=== PATIENT | female | born 1950 | race African-American/Black ===

== ENCOUNTER 2020-02-19 07:37 | Emergency (ER) | payer MEDICARE, MEDICAID, SELFPAY ==
[2020-02-19 07:49] VITALS: BP 151/84; PULSE 92; RESP 18; TEMP 36.6; O2SAT 100
--- NOTE | 2020-02-19 08:03 | ED.GENADULT ---
HPI - General Adult General Chief complaint: Unspecified Stated complaint: swelling arm/finger injury Time Seen by Provider: 02/19/20 07:39 History of Present Illness HPI narrative: She presented this morning with multiple complaints and questions. She says that she had swelling around the veins in her right forearm after striking it on something the other day. She says that this is improving. She denies pain. She also has a black dot on the tip of the right thumb that developed after pinching it with a can greige goods marker. She has no p[ain. Additionally she had several questions about what to expect with aging and how to stay healthy. Related Data Home Medications Medication Instructions Recorded Confirmed calcium carbonate-vitamin D3 600 cap PO 08/23/19 mg calcium-200 unit capsule indapamide 2.5 mg tablet 2.5 mg PO DAILY 08/23/19 xljpsmaufcyj-Ws-xpni-minerals tablet PO 08/23/19 Allergies Allergy/AdvReac Type Severity Reaction Status Date / Time No Known Allergies Allergy Unknown Verified 02/19/20 07:52 Review of Systems Review of Systems: All systems reviewed & are unremarkable except as noted in HPI and below Constitutional: Constitutional: Denies fever(s) and Denies weakness Eyes: Eyes: Denies change in vision Cardiovascular: Cardiovascular: Denies chest pain Respiratory: Respiratory: Denies dyspnea Gastrointestinal: Gastrointestinal: Denies abdominal pain Musculoskeletal: Musculoskeletal: Denies back pain Neurologic: Denies dizziness, Denies headache(s), Denies numbness and Denies weakness [facility] Past Medical History Medical History Hypertension Surgical History Surgical History History of tonsillectomy History of vaginal surgery Family History Family History Grandparent Hypertension Mother Hypertension Social History Social History Smoking status: Never smoker Second hand tobacco smoke exposure: No Alcohol intake: never Substance use: never Substance use type: does not use 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 Gender identity (if verbalized by the patient): Female Spiritual care concerns: Yes Agree to blood products: No Exam Const: General: healthy appearing, no acute distress and alert Orientation/consciousness: patient oriented x3 HENMT: Head: normal to inspection Resp: Effort & Inspection: normal respiratory effort Auscultation: clear to auscultation bilaterally Cardio: Rate: regular rate Rhythm: regular rhythm Skin: General skin exam: normal color Rashes: no rashes Other: resolving blood blister to right thumb Neuro: General: patient oriented x3, moves all extremities and no focal motor deficits Speech: normal speech Extrem: General: normal to inspection Psych: Appearance: grossly normal and well kempt Mental Status: mental status grossly normal Attitude: cooperative Course Vital Signs Vital signs: Vital Signs Temperature 36.6 C 02/19/20 07:49 Pulse Rate 92 02/19/20 07:49 Respiratory Rate 18 02/19/20 07:49 Blood Pressure 151/84 H 02/19/20 07:49 Pulse Oximetry 100 02/19/20 07:49 Temperature 36.6 C 02/19/20 07:49 Pulse Rate 92 02/19/20 07:49 Respiratory Rate 18 02/19/20 07:49 Blood Pressure 151/84 H 02/19/20 07:49 Pulse Oximetry 100 02/19/20 07:49 Medical Decision Making Vital Signs Vital Signs: Vital Signs Temperature 36.6 C 02/19/20 07:49 Pulse Rate 92 02/19/20 07:49 Respiratory Rate 18 02/19/20 07:49 Blood Pressure 151/84 H 02/19/20 07:49 Pulse Oximetry 100 02/19/20 07:49 Temperature 36.6 C 02/19/20 07:49 Pulse Rate 92 02/19/20 07:49 Respiratory Rate 18 02/19/20 07:49 Blood Pressure 151/84 H 02/19/20 07:49 P
--- NOTE | 2020-02-19 08:11 | PC.NURSE ---
Pt left department after being seen by ERP without discharge instructions.
== END 2020-02-19 08:13 | disposition left against medical advice (07) ==
LOC: ANHED 07:59
PROVIDERS: Emergency Provider Emergency Medicine; PCP Family Medicine
DX: S60.321A Blister (nonthermal) of right thumb, initial encounter (principal); I10 Essential (primary) hypertension; W27.4XXA Contact with kitchen utensil, initial encounter
CPT/HCPCS: 99281

== ENCOUNTER 2020-04-24 09:41 | Outpatient (CLI) | payer MEDICARE, MEDICAID, SELFPAY ==
--- NOTE | ~2020-04-24 | MM_ITS ---
EXAMINATION: MM screening sarabjit BI w tio HISTORY: Screening mammogram TECHNIQUE: Craniocaudal and mediolateral oblique 3-D tomosynthesis images were obtained and synthetic 2-D images were generated. CAD analysis was submitted and interpreted. COMPARISON: 04/22/2019, 04/06/2018, 12/13/2016 BREAST PARENCHYMAL COMPOSITION: The breasts are extremely dense, which lowers the sensitivity of mamm ography. FINDINGS: RIGHT BREAST: There is possible architectural distortion of the subareolar right breast best apprecia wali on the craniocaudal view. LEFT BREAST: There is no evidence of suspicious mass, calcification, or architectural distortion to s uggest malignancy. There has been no significant interval change. IMPRESSION: 1. Possible subareolar architectural distortion of the right breast. 2. Additional mammographic views and possible breast ultrasound are recommended. BI-RADS Category 0: Incomplete: Needs additional imaging evaluation. Reviewed, dictated and finalized at location A. IMPRESSION: 1. Possible subareolar architectural distortion of the right breast. 2. Additional mammographic views and possible breast ultrasound are recommended . BI-RADS Category 0: Incomplete: Needs additional imaging evaluation.
== END 2020-04-24 09:42 | disposition home or self-care (01) ==
LOC: ANHIMG 09:44
PROVIDERS: PCP Family Medicine; Visit Provider Family Medicine
DX: Z12.31 Encounter for screening mammogram for malignant neoplasm of breast (principal); R92.8 Other abnormal and inconclusive findings on diagnostic imaging of breast
CPT/HCPCS: 77063; 77067

== ENCOUNTER 2020-06-19 09:46 | Outpatient (CLI) | payer MEDICARE, MEDICAID, SELFPAY ==
--- NOTE | ~2020-06-19 | MMUS_ITS ---
EXAMINATION: MM diagnostic sarabjit RT w tio, US breast RT complete HISTORY: Possible subareolar architectural distortion of right breast reported on 04/24/2020 bilatera l digital screening mammogram TECHNIQUE: Additional 3-D tomosynthesis images of the right breast were performed and synthetic 2-D i mages were generated. CAD analysis was submitted and interpreted. High resolution complete right panch[address] st ultrasound was performed. COMPARISON: 04/24/2020 bilateral digital screening mammogram FINDINGS: MAMMOGRAPHIC FINDINGS: There are scattered benign microcalcifications. No suspicious mass or architectural distortion is det ected. No skin thickening or retraction. ULTRASOUND: There is dense echotexture but no suspicious mass, shadowing or cyst is identified. IMPRESSION: 1. No mammographic evidence of malignancy 2. Routine mammographic screening is recommended, with ultrasound as appropriate considering the dens e stroma the breasts BI-RADS Category 2: Benign finding(s). Reviewed, dictated and finalized at location A. NICIAN TERMINAL AND REPEATER IMPRESSION: 1. No mammographic evidence of malignancy 2. Routine mammographic screening is recommended, with ultrasound as appropriat e considering the dense stroma the breasts BI-RADS Category 2: Benign finding(s).
== END 2020-06-19 09:47 | disposition home or self-care (01) ==
LOC: ANHIMG 09:48
PROVIDERS: PCP Family Medicine; Visit Provider Physician Assistant
DX: R92.8 Other abnormal and inconclusive findings on diagnostic imaging of breast (principal)
CPT/HCPCS: 76641; 77061; 77065; G0279

== ENCOUNTER 2021-02-01 14:25 | Emergency (ER) | payer MEDICARE, MEDICAID, SELFPAY ==
--- NOTE | ~2021-02-01 | XR_ITS ---
EXAMINATION: XR chest 1V portable INDICATION: Cough and fever TECHNIQUE: Portable AP chest at 1500 hours COMPARISON: None available FINDINGS: The lungs are hyperinflated but free of acute opacities. There is no pleural effusion or pn eumothorax. The cardiomediastinal silhouette is normal. There is levocurvature of the partially image d lumbar spine. IMPRESSION: 1. Hyperinflation without acute cardiopulmonary abnormality. Reviewed, dictated and finalized at location A.
[2021-02-01 14:27] VITALS: BP 134/77; PULSE 121; RESP 22; TEMP 39.1; O2SAT 96
[2021-02-01 14:52] LABS: Basophils Percent Auto 0.4 % (0.2-1.2); Hematocrit 33.3 % (37.0-47.0); Hemoglobin 10.7 g/dL (12.0-15.0); Immature Granulocyte Absolute 0.01 K/mm3 (0.00-0.031); Immature Granulocyte Percent A 0.4 % (0-0.5); Lymphocytes Absolute Auto 0.78 K/mm3 (0.9-3.2); Lymphocytes Percent Auto 28.6 % (18.3-44.2); Mean Corpuscular HGB Conc 32.1 g/dl (32-36); Mean Corpuscular Hemoglobin 26.8 pg (26-34); Mean Corpuscular Volume 83.3 fl (80-100); Mean Platelet Volume 10.1 fl (7.4-10.4); Monocytes Absolute Auto 0.3 K/mm3 (0.1-0.6); Monocytes Percent Auto 9.9 % (2.6-8.5); Neutrophils Absolute Auto 1.7 K/mm3 (1.3-6.7); Neutrophils Percent Auto 60.7 % (45.5-73.1); Platelet Count Result 210 k/mm3 (150-375); Red Cell Distribution Width 13.1 % (11.5-14.5); White Blood Count 2.7 K/mm3 (4.5-10.0)
--- NOTE | 2021-02-01 15:06 | ED.FEVER ---
HPI - Fever General Chief Complaint: Fever Stated Complaint: FEVER/TIRED Time Seen by Provider: 02/01/21 14:42 Source: patient, RN notes reviewed and old records reviewed Mode of arrival: ambulatory Limitations: no limitations History of Present Illness HPI Narrative: This is a 70 year old female who presents for evaluation of cough and fever. She states she thinks she has COVID, and she is not vaccinated. She started having Fever on Friday, and she states her fevers are occurring daily. She also reports cough. She denies chest pain, shortness of breath, nausea, vomiting or diarrhea. She does not know of any known covid Exposures but she does go to [employer]. She denies dysuria , abdominal pain or hematuria. She has not taken any medication today but previously she has been taking over the counter medication. Related Data Home Medications Medication Instructions Recorded Confirmed calcium carbonate-vitamin D3 600 cap PO 08/23/19 03/20/20 mg calcium-200 unit capsule vpgzeurewrlv-Su-dscf-minerals tablet PO 08/23/19 03/20/20 ascorbic acid (vitamin C) 250 mg 250 mg PO DAILY 03/20/20 03/20/20 tablet Allergies Allergy/AdvReac Type Severity Reaction Status Date / Time No Known Allergies Allergy Unknown Verified 02/01/21 14:34 Review of Systems Review of Systems: All systems reviewed & are unremarkable except as noted in HPI and below Constitutional: Constitutional: Reports chills, Reports fatigue and Reports fever(s) ENT: Reports nasal congestion and Denies sore throat Cardiovascular: Cardiovascular: Denies chest pain Respiratory: Respiratory: Reports cough and Denies dyspnea Gastrointestinal: Gastrointestinal: Denies abdominal pain, Denies diarrhea, Denies nausea and Denies vomiting Neurologic: Denies headache(s) [facility] Past Medical History Medical History Abnormal mammogram of right breast Benign hypertension Dyslipidemia Hypercholesterolemia diet treated Hyperlipidemia Hypertension Post-menopausal Skin plaque Surgical History Surgical History History of tonsillectomy History of vaginal surgery Family History Family History Grandparent Hypertension Mother Hypertension Social History Social History Smoking status: Never smoker Second hand tobacco smoke exposure: No Alcohol intake: never Substance use: never Substance use type: does not use 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 Gender identity (if verbalized by the patient): Female Spiritual care concerns: Yes Agree to blood products: No Exam Const: General: no acute distress and alert Nutritional Appearance: thin Orientation/consciousness: patient oriented x3 Eyes: EOM: EOMs intact bilaterally Resp: Effort & Inspection: normal respiratory effort, not labored, no retractions and not tachypneic Auscultation: clear to auscultation bilaterally Cardio: Rate: tachycardic Rhythm: regular rhythm Heart sounds: no murmurs Peripheral pulses: Peripheral pulses 2+ throughout GI: GI Palp: Yes Soft to palpation, No Tenderness to palpation present (GI) and No Guarding due to palpation present (GI) Auscultation: normal bowel sounds Skin: General skin exam: normal color Rashes: no rashes Neuro: General: patient oriented x3, moves all extremities and CN's II-XI intact bilaterally Psych: Mental Status: mental status grossly normal Affect: normal affect Course Reevaluation(s) Reevaluation #1: I have discussed with patient chest xray does not show pneumonia at this time. She has no complaints and she feels better. Her labs shows decreased wbc but on review of records her wbc runs low. She was also found to have low sodium which may be due to i
[2021-02-01] MEDS: SODIUM CHLORIDE 0.9% IV 1,000 ML 999 ML IV CONT ×2 (15:10→15:53)
[2021-02-01 15:19] LABS: Lactic Acid Reflex 0.9 mmol/L (0.7-2.1)
[2021-02-01 15:21] LABS: Alanine Aminotransferase 11 U/L (4-35); Albumin Level 4.6 g/dL (3.5-5.1); Alkaline Phosphatase 64 U/L (38-126); Anion Gap 8 mmol/L (8-16); Aspartate Amino Transferase 27 U/L (14-36); Bilirubin,Total 0.3 mg/dL (0.2-1.3); Blood Urea Nitrogen 15 mg/dL (7-17); Calcium 9.1 mg/dL (8.4-10.2); Carbon Dioxide 27 mmol/L (22-30); Chloride 93 mmol/L (98-107); Estimated CRCL calculation 56 ml/min; Estimated Glomerular Filt Rate > 60; Glucose 100 mg/dL (65-110); Magnesium 1.6 mg/dL (1.6-2.3); Potassium 3.7 mmol/L (3.4-5.0); Sodium 128 mmol/L (137-145)
[2021-02-01 15:22] LABS: Atypical Lymphocytes Present; Ovalocytes 1+ (NORMAL); Platelet Estimate Adequate (Adequate)
[2021-02-01 15:29] VITALS: BP 125/68; PULSE 99; RESP 16; O2SAT 100
--- NOTE | 2021-02-01 16:09 | PC.NURSE ---
Pt up to bathroom and is unable to urinate. Nurse attempted straight cath with no urine output. Bladder scan reads from 40-80 ml in bladder. Continuing to hydrate pt with IVF.
[2021-02-01 17:18] LABS: Add Urine Microscopic? YES; Appearance Urine Clear (Clear); Bacteria Urine Trace /hpf; Bilirubin Urine Negative (Negative); Blood Urine Negative (Negative); Color Urine Yellow (Yellow); Glucose Urine UA Negative (Negative); Ketones Urine Trace mg/dL (Negative); Leukocyte Esterase Ur Negative LEU/UL (Negative); Mucus Urine Rare /lpf; Nitrate Urine Negative (Negative); Protein Urine 1+ mg/dL (Negative); RBC Urine 0-2 /hpf (0-2); Specific Grav Ur 1.015 (1.001-1.035); Squamous Epithelial Cell Urine Rare /hpf (Few); Urobilinogen Urine Negative mg/dL (<2.0); WBC Urine 0-3 /hpf
[2021-02-01 18:46] VITALS: BP 122/78; PULSE 92; RESP 16; TEMP 37.2; O2SAT 100
[2021-02-03 02:02] LABS: SARS-CoV-2 RNA PCR Positive
== END 2021-02-01 18:48 | disposition home or self-care (01) ==
PROVIDERS: Emergency Medicine; Emergency Provider General Practice
DX: U07.1 COVID-19 (principal); R50.9 Fever, unspecified; E87.1 Hypo-osmolality and hyponatremia; I10 Essential (primary) hypertension; E78.5 Hyperlipidemia, unspecified
CPT/HCPCS: 36415; 51701; 71045; 80048; 80076; 81001; 83605; 83735; 85025; 87804; 96361; 96374; 99284; C9803; J0131; J7030; U0003; U0005

== ENCOUNTER 2021-02-07 13:13 | Inpatient (IN) | payer MEDICARE, MEDICAID, SELFPAY ==
[2021-02-07] VITALS (11 sets, daily range): BP systolic 120–147; BP diastolic 74–94; PULSE 92–139; RESP 17–29; TEMP 36.7–37.3; O2SAT 93–100; BMI 16.0
--- NOTE | ~2021-02-07 | XR_ITS ---
EXAMINATION: XR chest 1V portable INDICATION: Cough, fever, shortness of breath TECHNIQUE: Portable AP chest at 1346 hours COMPARISON: 02/01/2021 FINDINGS: The lungs are hyperinflated. Airspace opacities have developed in the lung bases. There is no pleural effusion or pneumothorax. The cardiomediastinal silhouette is normal. IMPRESSION: 1. Bibasilar airspace opacities, consistent with atelectasis versus pneumonia. Reviewed, dictated and finalized at location B.
--- NOTE | ~2021-02-07 | CT_ITS ---
EXAMINATION: CTA chest PE protocol DATE: 02/07/2021 15:39 INDICATION: Shortness of breath, COVID 19 TECHNIQUE: Computed tomography angiography (CTA) of the chest was performed with 100 mL Omnipaque-350 intravenous contrast timed to evaluate the pulmonary arteries. Coronal maximum intensity projection 3D-reconstructions were created by the technologist. The dose-length product (DLP) was 180.89 mGy-cm. Automated exposure control and iterative reconstruction technique were employed. COMPARISON: None. FINDINGS: The pulmonary arteries are well-opacified. No pulmonary embolism is identified. There is mi ld emphysema. There are groundglass opacities throughout the lungs with a mid and lower lung zone pre dominance. There is no pleural effusion or pneumothorax. The heart size is normal. There is mild bila teral hilar and mediastinal lymphadenopathy, likely reactive. There is mild thoracic spondylosis. IMPRESSION: 1. Groundglass opacities in the mid and lower lung zone predominance, consistent with COVID 19 pneumo gavi given patient's clinical history. 2. Mild emphysema. 3. No pulmonary embolus. Reviewed, dictated and finalized at location B. IMPRESSION: 1. Groundglass opacities in the mid and lower lung zone predominance, consisten t with COVID 19 pneumonia given patient's clinical history. 2. Mild emphysema. 3. No pulmonary embolus.
--- NOTE | 2021-02-07 13:20 | ECG_ITS ---
Measurements Intervals [place] Rate: 132 P: 83 MO: 147 QRS: 44 QRSD: 72 T: 72 QT: 304 QTc: 451 Interpretive Statements SINUS TACHYCARDIA BASELINE ARTIFACT- I, II, III, AVR, AVL, AVF, V3 ABNORMAL ECG Electronically Signed On 02-07-2021 15:32:25 CDT by Tong Casillas D.O.
--- NOTE | 2021-02-07 13:42 | ED.SOB ---
HPI - SOB/Dyspnea General Chief Complaint: Shortness of Breath/Dyspnea Stated Complaint: DIFFICULTY BREATHING Source: RN notes reviewed History of Present Illness HPI Narrative: Patient presents to the emergency department from home via EMS for hypoxia. Per EMS when they arrived patient's oxygen saturation was approximately 85% on room air. Patient states she was diagnosed with COVID-19 on 02/01/2021 states she has been feeling weak as a kitten states that she has been feeling increasingly short of breath and her she gets up and ambulates or does any activities that does improve with rest she states that she has had no fever chills chest pain abdominal pain nausea vomiting or any other symptoms Related Data Home Medications Medication Instructions Recorded Confirmed calcium carbonate-vitamin D3 600 cap PO 08/23/19 03/20/20 mg calcium-200 unit capsule rqfonwyoqwmt-Zw-fheg-minerals tablet PO 08/23/19 03/20/20 ascorbic acid (vitamin C) 250 mg 250 mg PO DAILY 03/20/20 03/20/20 tablet Allergies Allergy/AdvReac Type Severity Reaction Status Date / Time No Known Allergies Allergy Unknown Verified 02/01/21 14:34 Review of Systems Review of Systems: Gen.: Denies fevers or chills Eyes: Denies eye pain or visual change ENT: Denies congestion Respiratory: See HPI CV: Denies chest pain or palpitations GI: Denies abdominal pain nausea, emesis or diarrhea Musculoskeletal: Denies back pain or muscle pain Neuro: Reports weakness Skin: Denies rash Except as documented, all other systems reviewed and negative [facility] Past Medical History Medical History Abnormal mammogram of right breast Benign hypertension Dyslipidemia Hypercholesterolemia diet treated Hyperlipidemia Hypertension Post-menopausal Skin plaque Surgical History Surgical History History of tonsillectomy History of vaginal surgery Family History Family History Grandparent Hypertension Mother Hypertension Social History Social History Smoking status: Never smoker Second hand tobacco smoke exposure: No Alcohol intake: never Substance use: never Substance use type: does not use 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 Gender identity (if verbalized by the patient): Female Spiritual care concerns: Yes Agree to blood products: No Exam Narrative: APPEARANCE: No acute distress, nontoxic, resting in bed EYES: EOMI HEENT: Normocephalic, atraumatic, oral mucosa dry RESPIRATORY: No respiratory distress Clear to auscultation bilaterally with no rhonchi wheezing or rales. CARDIOVASCULAR: Regular rate and rhythm without murmurs rubs or gallops. ABDOMINAL: Soft, nontender, nondistended, no rebound or guarding MUSCULOSKELETAl: Moves all extremities. No clubbing, cyanosis or edema. NEURO: Awake and alert. Following commands, speech normal, no focal deficits SKIN:: Warm, dry. No rashes lesions or abrasions PSYCHIATRIC: Normal affect/mood, Course Course Emergency Course: Reviewed old records Upon initial arrival by EMS patient was 85% on room air patient in ED is progressively had improvement of her breathing is now back down to room air head appears with the patient that activity worsens the patient oxygen demand Discussed with GIANLUCA Kraus for Dr. Sosa presentation work-up agrees with admission at this time request patient started on Decadron Discussed with patient and family results of workup and diagnosis. Discussed need for admission. Patient and family understand and agree to current treatment plan Vital Signs Vital signs: Vital Signs Temperature 99.1 F 02/07/21 13:18 Pulse Rate 137 H 02/07/21 13:18 Respiratory Rate 23 H 02/07/21 13:18 Blood Pressure 136/93 H 02/07/21 1
[2021-02-07 13:48] LABS: Basophils Percent Auto 0.3 % (0.2-1.2); Eosinophils Absolute Auto 0.1 K/mm3 (0-0.3); Eosinophils Percent Auto 0.7 % (0-4.4); Hematocrit 37.1 % (37.0-47.0); Hemoglobin 11.8 g/dL (12.0-15.0); Immature Granulocyte Absolute 0.03 K/mm3 (0.00-0.031); Immature Granulocyte Percent A 0.4 % (0-0.5); Lymphocytes Absolute Auto 1.19 K/mm3 (0.9-3.2); Lymphocytes Percent Auto 16.1 % (18.3-44.2); Mean Corpuscular HGB Conc 31.8 g/dl (32-36); Mean Corpuscular Hemoglobin 26.3 pg (26-34); Mean Corpuscular Volume 82.6 fl (80-100); Mean Platelet Volume 9.2 fl (7.4-10.4); Monocytes Absolute Auto 0.6 K/mm3 (0.1-0.6); Monocytes Percent Auto 7.9 % (2.6-8.5); Neutrophils Absolute Auto 5.5 K/mm3 (1.3-6.7); Neutrophils Percent Auto 74.6 % (45.5-73.1); Platelet Count Result 467 k/mm3 (150-375); Red Blood Count 4.49 M/mm3 (4.2-5.4); Red Cell Distribution Width 12.8 % (11.5-14.5); White Blood Count 7.4 K/mm3 (4.5-10.0)
[2021-02-07 13:57] LABS: Alanine Aminotransferase 12 U/L (4-35); Albumin Level 4.6 g/dL (3.5-5.1); Alkaline Phosphatase 94 U/L (38-126); Anion Gap 12 mmol/L (8-16); Aspartate Amino Transferase 35 U/L (14-36); Bilirubin,Total 0.7 mg/dL (0.2-1.3); Blood Urea Nitrogen 21 mg/dL (7-17); Calcium 10.2 mg/dL (8.4-10.2); Carbon Dioxide 26 mmol/L (22-30); Chloride 100 mmol/L (98-107); Estimated CRCL calculation 85 ml/min; Estimated Glomerular Filt Rate > 60; Glucose 132 mg/dL (65-110); Potassium 3.6 mmol/L (3.4-5.0); Sodium 138 mmol/L (137-145)
[2021-02-07 14:01] LABS: CRP 2.3 mg/dL (<1.0); Lactate Dehydrogenase 820 U/L (313-618)
[2021-02-07] MEDS: SODIUM CHLORIDE 0.9% IV 1,000 ML 999 ML IV CONT (14:07)
--- NOTE | 2021-02-07 14:08 | PC.NURSE ---
On arrival to ED pt states she has no or children to take care of her and feels she cannot take care of herself any more. Expresses desire to be admitted or places in [place].
[2021-02-07 14:16] LABS: Partial Thromboplastin Time 26.9 SECONDS (22.3-36.8); Prothrombin Time 12.8 Seconds (11.1-14.7)
--- NOTE | 2021-02-07 15:36 | PC.NURSE ---
Pt to CT on stretcher.
[2021-02-07] MEDS: DEXAMETHASONE SOD PHOS INJ 4 MG/ML VIAL 6 MG IV PUSH (16:19)
--- NOTE | 2021-02-07 18:01 | PC.NURSE ---
Attempted to call report. Floor states fax machine was broken and didn't receive SBAR. Will call back
--- NOTE | 2021-02-07 18:19 | PC.NURSE ---
Attempted to call report. Floor RN will call back
--- NOTE | 2021-02-07 19:05 | PC.NURSE ---
This patient, Arlyn Felix, was admitted to 3 Med Surg Room 320-01. Patient/family oriented to hospital policies and general routines including ID bracelet, bed and alarms, visiting hours, pain management, procedures, bathroom and other care routines, personal items, smoking policy, room service/diet, and visiting hours. Report received from Nima BRINK Information on how to activate the Rapid Response Team has been discussed. Patient/Family are encouraged to report perceived risks to care and to ask questions if they do not understand what they are told or what they should do.
--- NOTE | 2021-02-07 21:03 | ADMGEN ---
This patient, Arlyn Felix, was admitted to 3 Med Surg Room 320-01. Patient/family oriented to hospital policies and general routines including ID bracelet, bed and alarms, visiting hours, pain management, procedures, bathroom and other care routines, personal items, smoking policy, room service/diet, and visiting hours. Information on how to activate the Rapid Response Team has been discussed. Patient/Family are encouraged to report perceived risks to care and to ask questions if they do not understand what they are told or what they should do.
--- NOTE | 2021-02-07 21:18 | PM.IMHP ---
H&P: HPI History of Present Illness Date/Time: 02/07/21 21:18 Chief Complaint: shortness of breath Narrative: Patient presents to the emergency department from home via EMS for hypoxia and shortness of breath. Per EMS when they arrived patient's oxygen saturation was approximately 85% on room air. Patient states she was diagnosed with COVID-19 on 02/01/2021 states she has been feeling Week with cough and fever since past Friday. She was here in the ER on 02/01/2021 when he was tested was positive for COVID. She has been increasingly getting short of breath particularly when she ambulates. No chest pain abdominal pain nausea vomiting. She has not been COVID vaccinated Review of Systems Review of Systems: - CONSTITUTIONAL: Denies weight loss, report fever and chills. - HEENT: Denies changes in vision and hearing - RESPIRATORY: reports SOB and cough. - CV: Denies palpitations and CP. - GI: Denies abdominal pain, nausea, vomiting and diarrhea. - : Denies dysuria and urinary frequency. - MSK: Denies myalgia and joint pain. - SKIN: Denies rash and pruritus. - NEUROLOGICAL: Denies headache and syncope. - PSYCHIATRIC: Denies recent changes in mood. Denies anxiety and depression. All systems reviewed & are unremarkable except as noted in HPI and below Constitutional: Constitutional: Reports fatigue and Reports weakness Neurologic: Reports weakness Endocrine: Endocrine: Reports fatigue PMFSH Past Medical History Medical History Abnormal mammogram of right breast Benign hypertension Dyslipidemia Hypercholesterolemia diet treated Hyperlipidemia Hypertension Post-menopausal Skin plaque Surgical History Surgical History History of tonsillectomy History of vaginal surgery Family History Family History Grandparent Hypertension Mother Hypertension Social History Social History Smoking status: Never smoker Second hand tobacco smoke exposure: No Alcohol intake: never Substance use: never Substance use type: does not use 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 Gender identity (if verbalized by the patient): Female Spiritual care concerns: No Agree to blood products: No Meds Home Medications and Allergies Home Medications Medication Instructions Recorded Confirmed Type lisinopril 10 mg tablet 10 mg PO DAILY #90 tablet 10/30/20 02/07/21 Rx Allergies Allergy/AdvReac Type Severity Reaction Status Date / Time No Known Allergies Allergy Unknown Verified 02/01/21 14:34 Vital Signs Vital Signs - 24 hr 02/07/21 13:18 02/07/21 13:46 02/07/21 14:01 Temperature 99.1 F Pulse Rate 137 H 139 H 122 H Respiratory Rate 23 H 23 H 29 H Blood Pressure 136/93 H 124/89 122/85 Pulse Oximetry 93 97 02/07/21 14:06 02/07/21 14:14 02/07/21 15:01 Temperature Pulse Rate 115 H 116 H Respiratory Rate 25 H Blood Pressure 142/92 H Pulse Oximetry 97 100 02/07/21 16:01 02/07/21 18:01 02/07/21 18:46 Temperature Pulse Rate 108 H 96 102 H Respiratory Rate 17 22 H 23 H Blood Pressure 140/82 147/94 H 137/85 Pulse Oximetry 95 95 97 Exam Narrative: GENERAL: The patient is well developed, not in acute distress HEENT: Nonicteric sclerae, PERRLA, EOMI. Oropharynx clear. Moist mucous membranes. Conjunctivae appear well perfused. CHEST: Chest wall is nontender. HEART: Regular rate and rhythm without murmur, rubs, or gallops LUNGS: Clear to auscultation bilaterally. no respiratory distress ABDOMEN: Soft, positive bowel sounds, non-tender, no organomegaly. SKIN: No rash, no excessive bruising, petechiae, or purpura. NEUROLOGIC: Cranial nerves II-XII intact, alert and oriented x 3, no gross motor deficits EXTREMITIES
[2021-02-07 22:18] LABS: Alanine Aminotransferase 9 U/L (4-35); Estimated CRCL calculation 53 ml/min; Estimated Glomerular Filt Rate > 60
[2021-02-07] MEDS: ENOXAPARIN 40 MG/0.4 ML SYRINGE SUB-Q (22:53)
[2021-02-07] MEDS: REMDESIVIR 200 MG/NS 250 ML 200 MG/250 ML BAG 250 MG IVPB (22:53)
[2021-02-07 23:55] LABS: Prothrombin Time 13.4 Seconds (11.1-14.7)
[2021-02-08 04:00] VITALS: BP 156/94; PULSE 97; RESP 18; TEMP 36.9; O2SAT 90
[2021-02-08 05:22] LABS: Glucose Point of Care 118 mg/dl (65-105)
[2021-02-08 07:41] LABS: Basophils Percent Auto 0.2 % (0.2-1.2); Hematocrit 32.8 % (37.0-47.0); Hemoglobin 10.6 g/dL (12.0-15.0); Immature Granulocyte Absolute 0.02 K/mm3 (0.00-0.031); Immature Granulocyte Percent A 0.5 % (0-0.5); Lymphocytes Absolute Auto 0.91 K/mm3 (0.9-3.2); Lymphocytes Percent Auto 22.5 % (18.3-44.2); Mean Corpuscular HGB Conc 32.3 g/dl (32-36); Mean Corpuscular Hemoglobin 26.5 pg (26-34); Mean Platelet Volume 9.4 fl (7.4-10.4); Monocytes Absolute Auto 0.3 K/mm3 (0.1-0.6); Monocytes Percent Auto 8.2 % (2.6-8.5); Neutrophils Absolute Auto 2.8 K/mm3 (1.3-6.7); Neutrophils Percent Auto 68.6 % (45.5-73.1); Platelet Count Result 403 k/mm3 (150-375); Red Cell Distribution Width 12.8 % (11.5-14.5)
[2021-02-08 07:58] LABS: Alanine Aminotransferase 9 U/L (4-35); Albumin Level 3.9 g/dL (3.5-5.1); Alkaline Phosphatase 74 U/L (38-126); Anion Gap 10 mmol/L (8-16); Aspartate Amino Transferase 21 U/L (14-36); Bilirubin,Total 0.4 mg/dL (0.2-1.3); Blood Urea Nitrogen 19 mg/dL (7-17); CRP 3.4 mg/dL (<1.0); Calcium 9.6 mg/dL (8.4-10.2); Carbon Dioxide 24 mmol/L (22-30); Chloride 103 mmol/L (98-107); Estimated CRCL calculation 53 ml/min; Estimated Glomerular Filt Rate > 60; Glucose 98 mg/dL (65-110); Potassium 4.2 mmol/L (3.4-5.0); Sodium 137 mmol/L (137-145)
[2021-02-08 08:00] VITALS: BP 142/87; PULSE 85; RESP 16; TEMP 36.9; O2SAT 94
[2021-02-08 08:10] LABS: Prothrombin Time 12.8 Seconds (11.1-14.7)
[2021-02-08 09:34] LABS: Platelet Estimate Increased (Adequate)
[2021-02-08 09:35] LABS: Microcytosis 2+ (NORMAL); Poikilocytosis 1+ (NORMAL)
[2021-02-08 10:18] LABS: Troponin I < 0.012 ng/mL (0.000-0.034)
[2021-02-08 10:24] LABS: D Dimer 0.66 ug/mL (<0.48)
[2021-02-08 10:25] LABS: NT Pro B Type Natriuretic Pept 184 pg/mL (5-100)
[2021-02-08 10:32] LABS: Erythrocyte Sedimentation Rate 83 mm/hr (0-20)
[2021-02-08 10:58] LABS: Lactate Dehydrogenase 712 U/L (313-618)
[2021-02-08 11:10] VITALS: BMI 16.0
[2021-02-08 12:00] VITALS: BP 114/66; PULSE 99; RESP 16; TEMP 36.7; O2SAT 93
[2021-02-08 13:21] LABS: Troponin I < 0.012 ng/mL (0.000-0.034)
[2021-02-08 16:00] VITALS: BP 120/66; PULSE 88; RESP 16; TEMP 37.1; O2SAT 95
[2021-02-08] MEDS: lisinopriL 10 MG TABLET PO (16:47)
--- NOTE | 2021-02-08 19:23 | PM.IMPN ---
Progress Note: A&P Assessment and Plan (1) COVID-19: Code(s): U07.1 - COVID-19 Status: Acute (2) Acute respiratory failure with hypoxia: Code(s): J96.01 - Acute respiratory failure with hypoxia Status: Acute (3) Skin plaque: Code(s): L98.8 - Other specified disorders of the skin and subcutaneous tissue Status: Acute (4) Benign hypertension: Code(s): I10 - Essential (primary) hypertension Status: Acute Additional Plan COVID-19 pneumonia and acute hypoxic respiratory failure Continue Decadron 6 mg IV daily Continue remdesivir Continue anticoagulation Subjective Date/time seen: 02/08/21 19:23 70-year-old female with past medical history significant for hypertension and hyperlipidemia, who confirmed being unvaccinated for COVID-19, presented but shortness of breath. She was test is positive on 02/01. Chest x-ray done today revealed concerns for bilateral patchy opacities. She has been started on remdesivir and Decadron and is also being managed for acute hypoxic respiratory failure Review of Systems Review of Systems: A 10 point review of system was conducted which was otherwise negative Exam Narrative: GENERAL: The patient is well developed, not in acute distress HEENT: Nonicteric sclerae, PERRLA, EOMI. Oropharynx clear. Moist mucous membranes. Conjunctivae appear well perfused. CHEST: Chest wall is nontender. HEART: Regular rate and rhythm without murmur, rubs, or gallops LUNGS: Clear to auscultation bilaterally. no respiratory distress ABDOMEN: Soft, positive bowel sounds, non-tender, no organomegaly. SKIN: No rash, no excessive bruising, petechiae, or purpura. NEUROLOGIC: Cranial nerves II-XII intact, alert and oriented x 3, no gross motor deficits EXTREMITIES: no edema, cyanosis or clubbing Objective Data Vital Signs Vital Signs: Vital Signs - 24 hr 02/07/21 23:59 02/08/21 04:00 02/08/21 08:00 Temperature 98.8 F 98.4 F 98.5 F Pulse Rate 93 97 85 Respiratory Rate 18 18 16 Blood Pressure 120/74 156/94 H 142/87 H Pulse Oximetry 93 90 94 02/08/21 12:00 02/08/21 16:00 Temperature 98.0 F 98.7 F Pulse Rate 99 88 Respiratory Rate 16 16 Blood Pressure 114/66 120/66 Pulse Oximetry 93 95 Intake/Output Intake/Output: Intake & Output 02/05/21 02/06/21 02/07/21 02/08/21 23:59 23:59 23:59 23:59 Intake Total 1250 1960 Output Total 600 Balance 1250 1360 Meds/Results Medications: Active Medications Generic Name Dose Route Start Last Admin Trade Name Freq PRN Reason Stop Dose Admin Ascorbic Acid 250 mg 02/09/21 09:00 Ascorbic Acid 250 Mg Tablet PO DAILY [facility] Benzocaine 1 lozenge 02/08/21 09:15 Benzocaine/Menthol (*Bkc) 18 Ea Lozenge PO PRN PRN Sore Throat Benzonatate 100 mg 02/08/21 09:15 Benzonatate 100 Mg Capsule PO TID PRN cough Dexamethasone Sodium Phosphate 6 mg 02/08/21 09:00 02/08/21 08:14 Dexamethasone Sod Phos Inj 10 Mg/Ml 1 Ml Vial IV PUSH 02/16/21 09:01 6 mg DAILY [facility] Administration Enoxaparin Sodium 40 mg 02/07/21 21:00 02/08/21 08:15 Enoxaparin 40 Mg/0.4 Ml Syringe SUB-Q Not Given Q12HR [facility] Famotidine 10 mg 02/08/21 21:00 Famotidine 10 Mg Tablet PO Q12HR [facility] Guaifenesin 200 mg 02/08/21 09:15 Guaifenesin 200 Mg/10 Ml Udc PO Q4H PRN Cough Remdesivir 100 mg in 250 mls @ 250 mls/hr 02/08/21 22:00 IVPB 02/11/21 22:01 Q24H [facility] Lisinopril 10 mg 02/08/21 09:00 02/08/21 16:47 Lisinopril 10 Mg Tablet PO 10 mg DAILY [facility] Administration Zinc Sulfate 220 mg 02/09/21 09:00 Zinc Sulfate 220 Mg Capsule PO QAM [facility] Radiology Results: ITS Impressions Chest X-Ray 02/07/21 13:53 IMPRESSION: 1. Bibasilar airspace opacities, consistent with atelectasis versus pneumonia. Chest CTA 02/07/21 15:41 IMPRESSION: 1. Groundglass opacities in the mid and lower lung zone predominance, consistent with COVID
[2021-02-08 20:00] VITALS: BP 120/66; PULSE 89; RESP 18; TEMP 36.3; O2SAT 96
[2021-02-08] MEDS: FAMOTIDINE 10 MG TABLET PO (21:56)
[2021-02-08] MEDS: REMDESIVIR 100 MG/NS 250 ML 100 MG/250 ML BAG 250 MG IVPB (21:56)
[2021-02-08] MEDS: ENOXAPARIN 40 MG/0.4 ML SYRINGE SUB-Q (21:56)
[2021-02-09] VITALS: BP 118/71; PULSE 80; RESP 18; TEMP 36.2; O2SAT 98
[2021-02-09 04:00] VITALS: BP 131/82; PULSE 85; RESP 18; TEMP 35.9; O2SAT 93
[2021-02-09 06:30] LABS: Basophils Percent Auto 0.3 % (0.2-1.2); Eosinophils Absolute Auto 0.1 K/mm3 (0-0.3); Eosinophils Percent Auto 0.7 % (0-4.4); Hematocrit 31.6 % (37.0-47.0); Hemoglobin 9.8 g/dL (12.0-15.0); Immature Granulocyte Absolute 0.06 K/mm3 (0.00-0.031); Immature Granulocyte Percent A 0.9 % (0-0.5); Lymphocytes Absolute Auto 1.29 K/mm3 (0.9-3.2); Lymphocytes Percent Auto 18.8 % (18.3-44.2); Mean Corpuscular Hemoglobin 26.5 pg (26-34); Mean Corpuscular Volume 85.4 fl (80-100); Mean Platelet Volume 9.5 fl (7.4-10.4); Monocytes Absolute Auto 0.6 K/mm3 (0.1-0.6); Neutrophils Absolute Auto 4.9 K/mm3 (1.3-6.7); Neutrophils Percent Auto 71.3 % (45.5-73.1); Nucleated Red Blood Cells Perc 0.3 % (0.0-0.2); Platelet Count Result 432 k/mm3 (150-375); Red Cell Distribution Width 12.9 % (11.5-14.5); White Blood Count 6.9 K/mm3 (4.5-10.0)
[2021-02-09 06:51] LABS: Alanine Aminotransferase 10 U/L (4-35); Albumin Level 3.5 g/dL (3.5-5.1); Alkaline Phosphatase 65 U/L (38-126); Anion Gap 9 mmol/L (8-16); Aspartate Amino Transferase 20 U/L (14-36); Bilirubin,Total < 0.1 mg/dL (0.2-1.3); Blood Urea Nitrogen 22 mg/dL (7-17); Calcium 9.2 mg/dL (8.4-10.2); Carbon Dioxide 25 mmol/L (22-30); Chloride 101 mmol/L (98-107); Estimated CRCL calculation 53 ml/min; Estimated Glomerular Filt Rate > 60; Glucose 77 mg/dL (65-110); Potassium 3.3 mmol/L (3.4-5.0); Sodium 135 mmol/L (137-145)
[2021-02-09 06:54] LABS: Prothrombin Time 13.4 Seconds (11.1-14.7)
[2021-02-09 06:56] LABS: D Dimer 0.52 ug/mL (<0.48)
[2021-02-09 09:06] LABS: Hypochromasia 1+ (NORMAL); Microcytosis 2+ (NORMAL); Platelet Estimate Increased (Adequate); Schistocytes 1+ (NORMAL)
[2021-02-09] MEDS: lisinopriL 10 MG TABLET PO (09:24)
[2021-02-09] MEDS: ASCORBIC ACID 250 MG TABLET PO (09:24)
[2021-02-09] MEDS: FAMOTIDINE 10 MG TABLET PO (09:25)
[2021-02-09] MEDS: POTASSIUM CHLORIDE 20 MEQ PACKET (FOR LIQUID) 40 MEQ PO (09:25)
[2021-02-09] MEDS: ZINC SULFATE 220 MG CAPSULE PO (09:25)
[2021-02-09] MEDS: ENOXAPARIN 40 MG/0.4 ML SYRINGE SUB-Q (09:25)
[2021-02-09 14:00] VITALS: BP 133/77; PULSE 101; RESP 14; TEMP 37.3; O2SAT 97
--- NOTE | 2021-02-09 15:35 | PM.DS ---
DS: Admitting Diagnosis Admitting Diagnosis COVID pneumonia DS: Discharge Diagnosis Discharge Diagnosis (1) COVID-19: Code(s): U07.1 - COVID-19 Status: Acute (2) Dyslipidemia: Code(s): E78.5 - Hyperlipidemia, unspecified Status: Acute (3) Benign hypertension: Code(s): I10 - Essential (primary) hypertension Status: Acute (4) Hypokalemia: Code(s): E87.6 - Hypokalemia Status: Acute (5) Hyponatremia: Code(s): E87.1 - Hypo-osmolality and hyponatremia Status: Acute DS: Summary Hospital Course Reason for hospitalization: COVID pneumonia Hospital Course: 70-year-old female with past medical history significant for hypertension and hyperlipidemia, who confirmed being unvaccinated for COVID-19, presented with shortness of breath. She was test is positive on 02/01. Chest x-ray done today revealed concerns for bilateral patchy opacities. She was started on remdesivir and Decadron and also managed for acute hypoxic respiratory failure. She continued to improve and was weaned off of oxygen to room air. She also received PT and OT while in house and she was recommended to get further rehab. She is now being discharged in stable condition to rehab. She is to continue 6 mg of Decadron for 10 days and continue aspirin 81 mg indefinitely. The need for further vaccination and quarantine have also been discussed with the patient. Time Spent with Patient Time attestation: Total time spent providing and/or coordinating discharge services: Time spent: Greater than 30 minutes Exam Narrative: GENERAL: The patient is well developed, not in acute distress HEENT: Nonicteric sclerae, PERRLA, EOMI. Oropharynx clear. Moist mucous membranes. Conjunctivae appear well perfused. CHEST: Chest wall is nontender. HEART: Regular rate and rhythm without murmur, rubs, or gallops LUNGS: Clear to auscultation bilaterally. no respiratory distress ABDOMEN: Soft, positive bowel sounds, non-tender, no organomegaly. SKIN: No rash, no excessive bruising, petechiae, or purpura. NEUROLOGIC: Cranial nerves II-XII intact, alert and oriented x 3, no gross motor deficits EXTREMITIES: no edema, cyanosis or clubbing DS: Data Data Completed and Pending Labs on day of discharge: Labs from last 24 hours 02/09/21 02/09/21 02/09/21 05:59 05:59 05:59 WBC RBC Hgb Hct MCV MCH MCHC RDW Plt Count MPV Immature Gran % (Auto) Neut % (Auto) Lymph % (Auto) Stokes % (Auto) Eos % (Auto) Baso % (Auto) Lymph # (Auto) Stokes # (Auto) Eos # (Auto) Baso # (Auto) Abs Immat Gran (auto) Absolute Neuts (auto) Absolute Nucleated RBC Nucleated RBC % Platelet Estimate Hypochromasia Microcytosis Schistocytes PT 13.4 INR 1.0 D-Dimer 0.52 H Sodium 135 L Potassium 3.3 L Chloride 101 Carbon Dioxide 25 Anion Gap 9 BUN 22 H Creatinine 0.70 Estim Creat Clear Calc 53 Estimated GFR > 60 Glucose 77 Calcium 9.2 Ferritin Pending Total Bilirubin < 0.1 L AST 20 ALT 10 Alkaline Phosphatase 65 Total Protein 7.0 Albumin 3.5 02/09/21 05:59 WBC 6.9 RBC 3.70 L Hgb 9.8 L Hct 31.6 L MCV 85.4 MCH 26.5 MCHC 31.0 L RDW 12.9 Plt Count 432 H MPV 9.5 Immature Gran % (Auto) 0.9 H Neut % (Auto) 71.3 Lymph % (Auto) 18.8 Stokes % (Auto) 8.0 Eos % (Auto) 0.7 Baso % (Auto) 0.3 Lymph # (Auto) 1.29 Stokes # (Auto) 0.6 Eos # (Auto) 0.1 Baso # (Auto) 0.0 Abs Immat Gran (auto) 0.06 H Absolute Neuts (auto) 4.9 Absolute Nucleated RBC 0.0 Nucleated RBC % 0.3 H Platelet Estimate Increased Hypochromasia 1+ Microcytosis 2+ Schistocytes 1+ PT INR D-Dimer Sodium Potassium Chloride Carbon Dioxide Anion Gap BUN Creatinine Estim Creat Clear Calc Estimated GFR Glucose Calcium Ferritin Total Bilirubin AST ALT Alkaline Phosphatase Tota
[2021-02-09 16:40] VITALS: BP 153/90; PULSE 121; RESP 14; TEMP 36.7; O2SAT 92
== END 2021-02-09 17:20 | DRG 177 ==
LOC: ANHED 16:18 → ANH3MEDSUR 17:42
PROVIDERS: Internal Medicine; Admitting Provider Hospitalist; Emergency Provider Emergency Medicine; PCP Family Medicine; Visit Provider Internal Medicine
DX: U07.1 COVID-19 (principal); J96.01 Acute respiratory failure with hypoxia; J12.82 Pneumonia due to coronavirus disease 2019; E87.1 Hypo-osmolality and hyponatremia; E87.6 Hypokalemia; I10 Essential (primary) hypertension; E78.5 Hyperlipidemia, unspecified; L98.8 Other specified disorders of the skin and subcutaneous tissue; Z78.0 Asymptomatic menopausal state; Z79.899 Other long term (current) drug therapy
CPT/HCPCS: 36415; 71045; 71275; 80053; 82565; 82728; 82948; 83615; 83880; 84145; 84460; 84484; 85025; 85380; 85610; 85652; 85730; 86140; 93005; 96361; 96365; 96372; 96375; 96376; 99291; A9270; G0378; J1100; J1650; J7030; Q9967

== ENCOUNTER 2021-07-21 09:57 | Outpatient (CLI) | payer MEDICARE, MEDICAID, SELFPAY ==
--- NOTE | ~2021-07-21 | MM_ITS ---
EXAMINATION: MM screening [facility] BI w tio HISTORY: Screening mammogram TECHNIQUE: Craniocaudal and mediolateral oblique 3-D tomosynthesis images were obtained and synthetic 2-D images were generated. CAD analysis was submitted and interpreted. COMPARISON: 06/19/2020, 04/24/2020, 04/22/2019, 04/06/2018 BREAST PARENCHYMAL COMPOSITION: The breasts are extremely dense, which lowers the sensitivity of mamm ography. FINDINGS: Scattered benign-appearing calcifications are present. There is no evidence of suspicious m ass, calcification, or architectural distortion to suggest malignancy in either breast. There has bee n no suspicious interval change. IMPRESSION: 1. No mammographic evidence of malignancy. 2. Recommend routine screening mammography in one year. BI-RADS Category 2: Benign finding(s). Reviewed, dictated and finalized at location A. [employer] NEUROPSYCHOLOGIST
== END 2021-07-21 09:58 | disposition home or self-care (01) ==
LOC: ANHIMG 10:00
PROVIDERS: PCP Family Medicine; Visit Provider Physician Assistant
DX: Z12.31 Encounter for screening mammogram for malignant neoplasm of breast (principal)
CPT/HCPCS: 77063; 77067

== ENCOUNTER 2021-10-29 09:44 | Emergency (ER) | payer MEDICARE, MEDICAID, SELFPAY ==
--- NOTE | ~2021-10-29 | US_ITS ---
EXAMINATION: US abdomen limited DATE: 10/29/2021 12:33 INDICATION: Epigastric pain TECHNIQUE: Multiple grayscale and Doppler ultrasound images of the abdomen were obtained. COMPARISON: None FINDINGS: The pancreatic head and body are normal in appearance. The pancreatic tail is not visualized. Liver has normal echogenicity and contour, with a smooth surface. No liver lesion identified. No intrahepat ic biliary duct dilation suspected. Portal venous flow was seen in the hepatopetal, normal direction and has normal Doppler waveform. Visualized proximal inferior vena cava and proximal aorta are normal . The gallbladder is normal in appearance. There is no cholelithiasis. The common bile duct measures 5 mm, which is normal. IMPRESSION: 1. Normal right upper quadrant ultrasound. Reviewed, dictated and finalized at location A.
[2021-10-29 09:51] VITALS: BP 179/97; PULSE 109; RESP 18; TEMP 36; O2SAT 100
--- NOTE | 2021-10-29 11:50 | ED.GENADULT ---
HPI - General Adult General Chief complaint: Unspecified <LUCI Beckford Last Filed: 10/29/21 13:04> Stated complaint: abd pain <LUCI Beckford Last Filed: 10/29/21 13:04> Time Seen by Provider: 10/29/21 11:02 <LUCI Beckford Last Filed: 10/29/21 13:04> Source: patient <LUIC Beckford Last Filed: 10/29/21 13:04> Mode of arrival: ambulatory <LUCI Beckford Last Filed: 10/29/21 13:04> Limitations: no limitations <LUCI Beckford Last Filed: 10/29/21 13:04> History of Present Illness HPI narrative: This is a 71-year-old female that presents to the emergency department for an abnormality noted on her abdomen. Reports she feels an unusual area in the upper abdomen. Denies any pain or any other symptoms associated. Denies fever or erythema. <LUCI Beckford Last Filed: 10/29/21 13:04> Related Data Allergies/adverse reactions: Allergies Allergy/AdvReac Type Severity Reaction Status Date / Time No Known Allergies Allergy Unknown Verified 03/23/21 08:17 <LUCI Beckford Last Filed: 10/29/21 13:04> Review of Systems Review of Systems: CONSTITUTIONAL: Denies fever GASTROINTESTINAL: Denies abdominal pain, nausea, vomiting SKIN: Denies erythema or warmth <LUCI Beckford Last Filed: 10/29/21 13:04> All systems reviewed & are unremarkable except as noted in HPI and below <LUCI Beckford Last Filed: 10/29/21 13:04> [facility] Past Medical History Medical History: Medical History Abnormal mammogram of right breast Benign hypertension Dyslipidemia Hypercholesterolemia diet treated Hyperlipidemia Hypertension Post-menopausal Skin plaque <LUCI Beckford Last Filed: 10/29/21 13:04> Surgical History Surgical History: Surgical History History of tonsillectomy History of vaginal surgery <Keli Pagan PA-C - Last Filed: 10/29/21 13:04> Family History Family History: Family History Grandparent Hypertension Mother Hypertension <Keli Pagan PA-C - Last Filed: 10/29/21 13:04> Social History Social History: Social History Smoking status: Never smoker Second hand tobacco smoke exposure: No Alcohol intake: never Substance use: never Substance use type: does not use 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 Gender identity (if verbalized by the patient): Female Spiritual care concerns: No Agree to blood products: No <Keli Pagan PA-C - Last Filed: 10/29/21 13:04> Exam Narrative: GENERAL: Well-appearing, well-nourished, and in no acute distress. HEAD: Normocephalic, atraumatic. EYES: EOMI. CHEST: Clear to auscultation. No respiratory distress. No wheezes rales or rhonchi HEART: Regular rate and rhythm. No murmur heard. Normal peripheral pulses. ABDOMEN: Soft, nontender, nondistended, normal active bowel sounds. No abnormal mass noted on exam in patient's area of concern EXTREMITIES: Normal range of motion. No edema. SKIN: Warm, dry, no rash. NEURO: No focal deficits. Alert and oriented x3. PSYCH: Normal mood and affect <Keli Pagan PA-C - Last Filed: 10/29/21 13:04> Course ELECTRICIAN ELEVATOR MAINTENANCE/PA Physician Supervision For this patient encounter, I reviewed the ELECTRICIAN ELEVATOR MAINTENANCE or PA documentation, treatment plan, and medical decision making <Isaac Arnold MD - Last Filed: 10/29/21 13:51> Vital Signs Vital signs: Vital Signs Temperature 96.8 F L 10/29/21 09:51 Pulse Rate 109 H 10/29/21 09:51 Respiratory Rate 18 10/29/21 09:51 Blood Pressure 179/97 H 05/02/22 09:51 Pulse Oximetry 100 10/29/21 09:51 Temperature 96.8 F L 10/29/21 09:51 Pulse Rate 106 H
[2021-10-29 13:18] VITALS: BP 171/93; PULSE 106; RESP 18; O2SAT 100
== END 2021-10-29 13:20 | disposition home or self-care (01) ==
PROVIDERS: Emergency Provider Emergency Medicine; PCP Family Medicine
DX: Z04.89 Encounter for examination and observation for other specified reasons (principal); I10 Essential (primary) hypertension; E78.5 Hyperlipidemia, unspecified
CPT/HCPCS: 76705; 99284

== ENCOUNTER 2021-11-08 10:43 | Outpatient (CLI) | payer MEDICARE, MEDICAID, SELFPAY ==
--- NOTE | ~2021-11-08 | XR_ITS ---
EXAMINATION: SCOLIOSIS DATE: 11/08/2021 11:18 INDICATION: Deforming dorsum of the feet, unspecified TECHNIQUE: Standing AP and lateral views of the thoracolumbar spine FINDINGS: There are 12 rib bearing thoracic vertebral bodies and 5 non-rib bearing lumbar type verteb ral bodies. There are 17 degrees of lumbar levoscoliosis. There are 2 mm of anterolisthesis of four o n C5 and 1 mm of retrolisthesis of C5 on C6. There is moderate loss of intervertebral disc space heig ht at C5-6 and C6-7. There is moderate lower lumbar spondylosis. Mild osteoarthritis is noted in the hips. Pelvic calcifications likely reflect uterine fibroids. IMPRESSION: 1. 17 degrees of lumbar levoscoliosis. 2. Moderate thoracic and lumbar spondylosis. Reviewed, dictated and finalized at location A.
== END 2021-11-08 10:44 | disposition home or self-care (01) ==
PROVIDERS: PCP Family Medicine; Visit Provider Physician Assistant Medical
DX: M43.9 Deforming dorsopathy, unspecified (principal); M41.86 Other forms of scoliosis, lumbar region; M47.816 Spondylosis without myelopathy or radiculopathy, lumbar region
CPT/HCPCS: 72082

== ENCOUNTER 2022-03-22 10:18 | Outpatient (CLI) | payer MEDICARE, MEDICAID, SELFPAY ==
[2022-03-22 10:57] LABS: Hematocrit 33.6 % (37.0-47.0); Hemoglobin 10.4 g/dL (12.0-15.0); Mean Corpuscular Hemoglobin 27.2 pg (26-34); Mean Platelet Volume 9.6 fl (7.4-10.4); Platelet Count Result 262 k/mm3 (150-375); Red Blood Count 3.82 M/mm3 (4.2-5.4); Red Cell Distribution Width 13.2 % (11.5-14.5); White Blood Count 4.2 K/mm3 (4.5-10.0)
[2022-03-22 11:07] LABS: Hemoglobin A1C 5.3 % (<5.7)
[2022-03-22 11:10] LABS: Alanine Aminotransferase 14 U/L (6-35); Albumin Level 4.6 g/dL (3.5-5.1); Alkaline Phosphatase 89 U/L (38-126); Anion Gap 12 mmol/L (8-16); Aspartate Amino Transferase 22 U/L (14-36); Bilirubin,Total 0.5 mg/dL (0.2-1.3); Blood Urea Nitrogen 20 mg/dL (7-17); Calcium 9.4 mg/dL (8.4-10.2); Carbon Dioxide 27 mmol/L (22-30); Chloride 100 mmol/L (98-107); Cholesterol 274 mg/dL (0-200); Estimated Glomerular Filt Rate > 60; Glucose 77 mg/dL (65-110); HDL Direct 76 mg/dL; Potassium 3.9 mmol/L (3.4-5.0); Sodium 139 mmol/L (137-145); Triglycerides 68 mg/dL (<150)
[2022-03-22 11:22] LABS: LDL Cholesterol Direct 147 mg/dL
== END 2022-03-22 10:19 | disposition home or self-care (01) ==
PROVIDERS: PCP Family Medicine; Visit Provider Physician Assistant Medical
DX: E78.2 Mixed hyperlipidemia (principal); R73.03 Prediabetes; R53.83 Other fatigue
CPT/HCPCS: 36415; 80053; 80061; 83036; 85027

== ENCOUNTER 2022-07-15 09:33 | Outpatient (CLI) | payer MEDICARE, MEDICAID, SELFPAY ==
[2022-07-15 09:55] LABS: Basophils Percent Auto 1.1 % (0.2-1.2); Eosinophils Percent Auto 1.1 % (0-4.4); Hemoglobin 11.3 g/dL (12.0-15.0); Immature Granulocyte Absolute 0.01 K/mm3 (0.00-0.031); Immature Granulocyte Percent A 0.4 % (0-0.5); Lymphocytes Absolute Auto 1.09 K/mm3 (0.9-3.2); Lymphocytes Percent Auto 41.6 % (18.3-44.2); Mean Corpuscular HGB Conc 31.4 g/dl (32-36); Mean Corpuscular Hemoglobin 27.5 pg (26-34); Mean Corpuscular Volume 87.6 fl (80-100); Mean Platelet Volume 9.4 fl (7.4-10.4); Monocytes Absolute Auto 0.2 K/mm3 (0.1-0.6); Monocytes Percent Auto 8.4 % (2.6-8.5); Neutrophils Absolute Auto 1.2 K/mm3 (1.3-6.7); Neutrophils Percent Auto 47.4 % (45.5-73.1); Platelet Count Result 292 k/mm3 (150-375); Red Blood Count 4.11 M/mm3 (4.2-5.4); Red Cell Distribution Width 13.7 % (11.5-14.5); White Blood Count 2.6 K/mm3 (4.5-10.0)
[2022-07-15 10:06] LABS: Alanine Aminotransferase 16 U/L (6-35); Albumin Level 4.9 g/dL (3.5-5.1); Alkaline Phosphatase 87 U/L (38-126); Anion Gap 10 mmol/L (8-16); Aspartate Amino Transferase 22 U/L (14-36); Bilirubin,Total 0.5 mg/dL (0.2-1.3); Blood Urea Nitrogen 21 mg/dL (7-17); Calcium 9.5 mg/dL (8.4-10.2); Carbon Dioxide 29 mmol/L (22-30); Chloride 101 mmol/L (98-107); Cholesterol 283 mg/dL (0-200); Estimated Glomerular Filt Rate > 60; Glucose 85 mg/dL (65-110); HDL Direct 89 mg/dL; Potassium 3.9 mmol/L (3.4-5.0); Sodium 140 mmol/L (137-145); Triglycerides 85 mg/dL (<150)
[2022-07-15 10:19] LABS: LDL Cholesterol Direct 137 mg/dL
== END 2022-07-15 09:34 | disposition home or self-care (01) ==
LOC: ANHLAB 09:35
PROVIDERS: PCP Family Medicine; Visit Provider Physician Assistant Medical
DX: R53.83 Other fatigue (principal); E78.2 Mixed hyperlipidemia
CPT/HCPCS: 36415; 80053; 80061; 85025

== ENCOUNTER 2022-08-12 09:44 | Outpatient (CLI) | payer MEDICARE, MEDICAID, SELFPAY ==
[2022-08-12 10:33] LABS: Basophils Percent Auto 0.6 % (0.2-1.2); Eosinophils Absolute Auto 0.1 K/mm3 (0-0.3); Eosinophils Percent Auto 1.5 % (0-4.4); Hematocrit 36.7 % (37.0-47.0); Hemoglobin 11.2 g/dL (12.0-15.0); Immature Granulocyte Absolute 0.01 K/mm3 (0.00-0.031); Immature Granulocyte Percent A 0.3 % (0-0.5); Lymphocytes Absolute Auto 1.77 K/mm3 (0.9-3.2); Lymphocytes Percent Auto 52.7 % (18.3-44.2); Mean Corpuscular HGB Conc 30.5 g/dl (32-36); Mean Corpuscular Hemoglobin 27.1 pg (26-34); Mean Corpuscular Volume 88.9 fl (80-100); Mean Platelet Volume 9.7 fl (7.4-10.4); Monocytes Absolute Auto 0.3 K/mm3 (0.1-0.6); Monocytes Percent Auto 10.1 % (2.6-8.5); Neutrophils Absolute Auto 1.2 K/mm3 (1.3-6.7); Neutrophils Percent Auto 34.8 % (45.5-73.1); Platelet Count Result 292 k/mm3 (150-375); Red Blood Count 4.13 M/mm3 (4.2-5.4); Red Cell Distribution Width 13.5 % (11.5-14.5); White Blood Count 3.4 K/mm3 (4.5-10.0)
[2022-08-12 10:40] LABS: Cholesterol 270 mg/dL (0-200); HDL Direct 65 mg/dL; Triglycerides 90 mg/dL (<150)
[2022-08-12 10:50] LABS: LDL Cholesterol Direct 119 mg/dL
== END 2022-08-12 09:45 | disposition home or self-care (01) ==
PROVIDERS: PCP Family Medicine; Visit Provider Physician Assistant Medical
DX: D72.819 Decreased white blood cell count, unspecified (principal); E78.2 Mixed hyperlipidemia
CPT/HCPCS: 36415; 80061; 85025

== ENCOUNTER 2022-09-30 07:47 | Outpatient (CLI) | payer MEDICARE, MEDICAID, SELFPAY ==
--- NOTE | ~2022-09-30 | MM_ITS ---
EXAMINATION: MM screening [facility] BI w tio HISTORY: Screening mammogram TECHNIQUE: Craniocaudal and mediolateral oblique 3-D tomosynthesis images were obtained and synthetic 2-D images were generated. CAD analysis was submitted and interpreted. COMPARISON: 07/21/2021 bilateral screening mammogram 06/19/2020 diagnostic right mammogram and complete right breast ultrasound examination 04/24/2000 04/18/2019 bilateral screening mammogram examinations BREAST PARENCHYMAL COMPOSITION: The breasts are extremely dense, which lowers the sensitivity of mamm ography. FINDINGS: Scattered bilateral benign calcifications. There is no evidence of suspicious mass, calcifi cation, or architectural distortion to suggest malignancy in either breast. There has been no suspici ous interval change. IMPRESSION: 1. No mammographic evidence of malignancy. 2. Recommend routine screening mammography in one year. BI-RADS Category 2: Benign finding(s). Reviewed, dictated and finalized at location A.
== END 2022-09-30 07:48 | disposition home or self-care (01) ==
LOC: ANHIMG 07:50
PROVIDERS: PCP Family Medicine; Visit Provider Family Medicine
DX: Z12.31 Encounter for screening mammogram for malignant neoplasm of breast (principal)
CPT/HCPCS: 77063; 77067

== ENCOUNTER 2023-01-09 09:36 | Outpatient (CLI) | payer MEDICARE, MEDICAID, SELFPAY ==
--- NOTE | ~2023-01-09 | XR_ITS ---
EXAMINATION: XR sacrum coccyx min 2V INDICATION: Pelvic pain, sacrococcygeal disorders TECHNIQUE: Three views of the sacrum and coccyx are obtained. COMPARISON: None available FINDINGS: Bone alignment is normal. There is no fracture. There is moderate lumbar spondylosis at L5- S1. Osteitis pubis is noted. There is mild osteoarthritis of the hips. Pelvic calcifications likely r eflect calcified uterine fibroids. IMPRESSION: 1. No acute osseous abnormality. Reviewed, dictated and finalized at location L.
[2023-01-09 10:45] LABS: Basophils Percent Auto 0.6 % (0.2-1.2); Eosinophils Absolute Auto 0.1 K/mm3 (0-0.3); Eosinophils Percent Auto 1.5 % (0-4.4); Hematocrit 34.1 % (37.0-47.0); Hemoglobin 10.6 g/dL (12.0-15.0); Immature Granulocyte Absolute 0.01 K/mm3 (0.00-0.031); Immature Granulocyte Percent A 0.3 % (0-0.5); Lymphocytes Absolute Auto 1.32 K/mm3 (0.9-3.2); Lymphocytes Percent Auto 39.6 % (18.3-44.2); Mean Corpuscular HGB Conc 31.1 g/dl (32-36); Mean Corpuscular Hemoglobin 27.7 pg (26-34); Mean Corpuscular Volume 89.3 fl (80-100); Mean Platelet Volume 9.4 fl (7.4-10.4); Monocytes Absolute Auto 0.3 K/mm3 (0.1-0.6); Monocytes Percent Auto 7.5 % (2.6-8.5); Neutrophils Absolute Auto 1.7 K/mm3 (1.3-6.7); Neutrophils Percent Auto 50.5 % (45.5-73.1); Platelet Count Result 271 k/mm3 (150-375); Red Blood Count 3.82 M/mm3 (4.2-5.4); Red Cell Distribution Width 13.8 % (11.5-14.5); White Blood Count 3.3 K/mm3 (4.5-10.0)
[2023-01-09 10:58] LABS: Alanine Aminotransferase 16 U/L (6-35); Albumin Level 4.6 g/dL (3.5-5.1); Alkaline Phosphatase 72 U/L (38-126); Anion Gap 3 mmol/L (8-16); Aspartate Amino Transferase 22 U/L (14-36); Bilirubin,Total 0.5 mg/dL (0.2-1.3); Blood Urea Nitrogen 18 mg/dL (7-17); Calcium 9.5 mg/dL (8.4-10.2); Carbon Dioxide 35 mmol/L (22-30); Chloride 102 mmol/L (98-107); Cholesterol 242 mg/dL (0-200); Estimated Glomerular Filt Rate > 60; Glucose 81 mg/dL (65-110); HDL Direct 56 mg/dL; Sodium 140 mmol/L (137-145); Triglycerides 105 mg/dL (<150)
[2023-01-09 11:09] LABS: LDL Cholesterol Direct 133 mg/dL
== END 2023-01-09 09:37 | disposition home or self-care (01) ==
PROVIDERS: PCP Family Medicine; Visit Provider Physician Assistant Medical
DX: E78.2 Mixed hyperlipidemia (principal); D64.9 Anemia, unspecified; M53.3 Sacrococcygeal disorders, not elsewhere classified
CPT/HCPCS: 36415; 72220; 80053; 80061; 85025

== ENCOUNTER 2023-12-01 08:09 | Outpatient (CLI) | payer MEDICARE, MEDICAID, SELFPAY ==
--- NOTE | ~2023-12-01 | MM_ITS ---
EXAMINATION: MM screening [facility] BI w tio HISTORY: Screening TECHNIQUE: Craniocaudal and mediolateral oblique 3-D tomosynthesis images were obtained and synthetic 2-D images were generated. CAD analysis was submitted and interpreted. COMPARISON: Comparison to multiple prior studies sequentially, with oldest reviewed study dated 01/2013. BREAST PARENCHYMAL COMPOSITION: Dense: The breasts are extremely dense, which lowers the sensitivity of mammography. FINDINGS: There is no evidence of suspicious mass, calcification, or architectural distortion to sugg est malignancy in either breast. There has been no suspicious interval change. IMPRESSION: 1. No mammographic evidence of malignancy. 2. Recommend routine screening mammography in one year. BI-RADS Category 1: Negative Reviewed, dictated and finalized at location B.
== END 2023-12-01 08:10 | disposition home or self-care (01) ==
LOC: ANHIMG 08:12
PROVIDERS: PCP Family Medicine; Visit Provider Family Medicine
DX: Z12.31 Encounter for screening mammogram for malignant neoplasm of breast (principal)
CPT/HCPCS: 77063; 77067

== ENCOUNTER 2024-01-14 09:40 | Outpatient (CLI) | payer MEDICARE, MEDICAID, SELFPAY ==
[2024-01-14 10:16] LABS: Basophils Percent Auto 0.3 % (0.2-1.2); Hemoglobin 11.5 g/dL (12.0-15.0); Immature Granulocyte Absolute 0.02 K/mm3 (0.00-0.031); Immature Granulocyte Percent A 0.3 % (0-0.5); Lymphocytes Absolute Auto 0.96 K/mm3 (0.9-3.2); Lymphocytes Percent Auto 13.9 % (18.3-44.2); Mean Corpuscular HGB Conc 31.1 g/dl (32-36); Mean Corpuscular Hemoglobin 27.3 pg (26-34); Mean Corpuscular Volume 87.7 fl (80-100); Mean Platelet Volume 9.8 fl (7.4-10.4); Monocytes Absolute Auto 0.5 K/mm3 (0.1-0.6); Monocytes Percent Auto 6.9 % (2.6-8.5); Neutrophils Absolute Auto 5.5 K/mm3 (1.3-6.7); Neutrophils Percent Auto 78.6 % (45.5-73.1); Platelet Count Result 245 k/mm3 (150-375); Red Blood Count 4.22 M/mm3 (4.2-5.4); Red Cell Distribution Width 13.1 % (11.5-14.5); White Blood Count 6.9 K/mm3 (4.5-10.0)
[2024-01-14 10:26] LABS: Cholesterol 257 mg/dL (0-200); HDL Direct 68 mg/dL; Triglycerides 110 mg/dL (<150)
[2024-01-14 10:37] LABS: LDL Cholesterol Direct 137 mg/dL
[2024-01-14 10:43] LABS: Iron 51 ug/dL (37-170)
[2024-01-14 10:52] LABS: Percent Iron Saturation 13 % (20-50)
[2024-01-14 13:13] LABS: Free T4 Free Thyroxine Reflex 0.99 ng/dL (0.78-2.19)
[2024-01-14 14:19] LABS: Total Triiodothyronine (T3) 0.85 NG/ML (0.97-1.69)
== END 2024-01-14 09:41 | disposition home or self-care (01) ==
LOC: ANHLAB 09:43
PROVIDERS: PCP Family Medicine; Visit Provider Physician Assistant Medical
DX: D64.9 Anemia, unspecified (principal); E78.00 Pure hypercholesterolemia, unspecified; F41.9 Anxiety disorder, unspecified
CPT/HCPCS: 36415; 80061; 82728; 83540; 83550; 84439; 84443; 84480; 85025

== ENCOUNTER 2024-04-29 09:20 | Outpatient (CLI) | payer MEDICARE, MEDICAID, SELFPAY ==
--- NOTE | ~2024-04-29 | DEXA_ITS ---
Bone Density Report Name: AL CODY Age: 74 Sex: Female Ethnicity: Black Date of : 1950 Indication: osteopenia; height loss; Referring Provider: BERNICE BATISTA Study: Bone densitometry was performed. Exam Date: April 29, 2024 Accession number: [id number] Bone Density: Region BMD T-score Z-score Classification AP Spine(L1-L4) 0.803 -2.2 -0.5 Osteopenia Femoral Neck (Left) 0.693 -1.4 -0.2 Osteopenia Total Hip (Left) 0.717 -1.8 -0.7 Osteopenia Femoral Neck (Right) 0.629 -2.0 -0.7 Osteopenia Total Hip (Right) 0.645 -2.4 -1.1 Osteopenia Total Hip Mean 0.681 -2.1 -0.9 Osteopenia World Health Organization criteria for BMD impression classify patients as: Normal (T-score at or above -1.0), Osteopenia (T-score between -1.0 and -2.5), or Osteoporosis (T-score at or below -2.5). 10-year Fracture Risk(1): Major Osteoporotic Fracture 4.5% Hip Fracture 1.2% Reported Risk Factors: [place] (Black), Neck BMD=0.629, BMI=16.6 (1) FRAX(R) Version 3.08. Fracture probability calculated for an untreated patient. Fracture probability may be lower if the patient has received treatment. Previous Exams: Region Exam Age BMD T-score BMD Change BMD Change Date g/cm2 vs Baseline vs Previous AP Spine (L1-L4) 04/29/2024 74 0.803 -2.2 -0.052 (-6.1%) -0.078 (-8.8%) 04/22/2019 69 0.881 -1.5 0.025 (3.0%)# -0.018 (-2.0%) 10/23/2015 65 0.899 -1.3 0.044 (5.1%)# 0.044 (5.1%)# 09/30/2011 61 0.856 -1.7 Total Hip(Left) 04/29/2024 74 0.717 -1.8 -0.035 (-4.7%) -0.050 (-6.5%) 04/22/2019 69 0.767 -1.4 0.015 (2.0%)# 0.023 (3.1%) 10/23/2015 65 0.744 -1.6 -0.008 (-1.1%) -0.008 (-1.1%) 09/30/2011 61 0.752 -1.6 Total Hip(Right) 04/29/2024 74 0.645 -2.4 -0.059 (-8.4%) -0.060 (-8.5%) 04/22/2019 69 0.704 -1.9 0.000 (0.0%)# -0.002 (-0.3%) 10/23/2015 65 0.707 -1.9 0.003 (0.4%)# 0.003 (0.4%)# 09/30/2011 61 0.704 -2.0 *Denotes significance at 95% confidence level, LSC for AP Spine = 0.022 g/cm2, LSC for Total Hip = 0.027 g/cm2 # Denotes dissimilar scan types or analysis methods Clinical Information Provided by Patient: Has used the following medications: Fosamax (i.e. alendronate), Vitamin D, Calcium Patient maximum height was 72.5 No regular weight bearing exercise Does not regularly consume dairy products Drinks caffeinated beverages Onset of menses at age 10 Number of children 0 Impression: The patient has low bone mass, based on the Right Total Hip T-score. The patient has an estimated ten-year risk of hip fracture of 1.2% and an estimated ten-year risk of major fracture of 4.5%, based on the WHO FRAX algorithm. No significant bone loss was observed. Discussion: BONE DENSITY IS LOW AT ONE OR MORE SKELETAL SITES. This patient's lowest T-score is low at one or more skeletal sites. It meets the World Health Organization's (WHO) criteria for ?low bone mass? (T-score between -1.0 and -2.5). The patient's 10-year risk of fracture as calculated by FRAX is less than the threshold where pharmacological therapy is recommended by the National Osteoporosis Foundation (NOF). However, all treatment decisions require clinical judgment and consideration of individual patient factors, including patient preferences, comorbidities, previous drug use, risk factors not captured in the FRAX model (e.g., frailty, falls, vitamin D deficiency, increased bone turnover, interval significant decline in bone density) and possible under or overestimation of fracture risk by FRAX. The patient should follow a healthful lifestyle (good nutrition with adequate calcium and vitamin D, and appropriate weight-bearing exercise). Follow-Up: Consider repeating this study in 2 to 3 years to reassess this patient's status, or sooner if there is some new clinical indication. Reported by: MILAGROS on 04/29/2024 10:07:00 AM. Reviewed, dictated and finalized at location Alisha RUSS
== END 2024-04-29 09:21 | disposition home or self-care (01) ==
LOC: ANHIMG 09:22
PROVIDERS: PCP Family Medicine; Visit Provider Family Medicine
DX: M85.89 Other specified disorders of bone density and structure, multiple sites (principal); Z78.0 Asymptomatic menopausal state
CPT/HCPCS: 77080

== ENCOUNTER 2024-08-09 09:48 | Emergency (ER) | payer MEDICARE, MEDICAID, SELFPAY ==
[2024-08-09 10:07] VITALS: BP 160/87; PULSE 103; RESP 15; TEMP 36.3; O2SAT 100
--- OUTSIDE RECORDS SUMMARY | 2024-08-09 10:27 | XMS_ITS ---
Author Organization [facility] Address Unknown Problems Problem Status Start Date End Date COVID-19 (Primary) (U07.1 - ICD-10-CM) ACTIVE ESSENTIAL (PRIMARY) HYPERTENSION (I10 - ICD-10-CM) ACT ELIS 02/09/2021 HYPERLIPIDEMIA, UNSPECIFIED (E78.5 - ICD-10-CM) ACTIVE 02/09/2021 ACUTE RESPIRATORY FAILURE WI TH HYPOXIA (J96.01 - ICD-10-CM) ACTIVE 02/09/2021 PNEUMONIA DUE TO CORONAVIRUS DISEASE 2019 (J12.82 - ICD-10-CM) ACTIVE 02/09/2021 WEAKNESS (R53.1 - ICD-10-CM) ACTIVE 02/09/2021 NEED FOR ASSISTANCE WITH PERSONAL CARE (Z74.1 - ICD-10 -CM) ACTIVE 02/09/2021 SHORTNESS OF BREATH (R06.02 - ICD-10-CM) ACTIVE 02/09/2021 DEFICIENCY OF OTHER VITAMINS (E56.8 - ICD-10-CM) ACTIV E 02/09/2021 Encounters Encounter Performer Performer Role Encounter Diagnoses Location Date Discharge - Discharged to home or self care - Home - Private home/apt. with no home health services [facility] 1 07:27 pm EDT - 1 01:34 pm EDT Social History
--- OUTSIDE RECORDS SUMMARY | 2024-08-09 10:27 | XMS_ITS ---
Author Organization [facility] Address Unknown Problems Problem Status Start Date End Date COVID-19 (U07.1 - ICD-10-CM) ACTIVE 02/09/2021 ESSENTIAL (PRIMARY) HYPERTENSION (I10 - ICD-10-CM) ACT ELIS 02/09/2021 HYPERLIPIDEMIA, UNSPECIFIED (E78.5 - ICD-10-CM) ACTIVE 02/09/2021 WEAKNESS (R53.1 - ICD-10-CM) ACTIVE 02/09/2021 ACUTE RESPIRATORY FAILURE WI TH HYPOXIA (J96.01 - ICD-10-CM) ACTIVE 02/09/2021 NEED FOR ASSISTANCE WITH PERSONAL CARE (Z74.1 - ICD-10 -CM) ACTIVE 02/09/2021 PNEUMONIA DUE TO CORONAVIRUS DISEASE 2019 (J12.82 - ICD-10-CM) ACTIVE 02/09/2021 SHORTNESS OF BREATH (R06.02 - ICD-10-CM) ACTIVE 02/09/2021 DEFICIENCY OF OTHER VITAMINS (E56.8 - ICD-10-CM) ACTIV E 02/09/2021 Encounters Encounter Performer Performer Role Encounter Diagnoses Location Date Discharge - Discharged to home or self care - Home - Private home/apt. with no home health services [facility] 02/09/2021 07:27 pm EDT - 03/01/2021 01:34 pm EDT Social History
--- NOTE | 2024-08-09 12:15 | ED_ITS ---
HPI - General Adult General Chief complaint: Dental/Oral Stated complaint: tongue cut from spicy food Time Seen by Provider: 08/09/24 11:48 History of Present Illness HPI narrative: 74-year-old female presented emergency department for evaluation for healing wound to her tongue. Patient states she was eating some hot for this today brain surface of the common did notice it was bleeding. Patient states that only blood 1 time and patient denies any current pain or complaint. Patient just wanted the wound evaluated to make sure was healing okay. Related Data Home Medications ?Medication ?Instructions ?Recorded ?Confirmed ?Last Taken ?Type multivitamin 1 tablet PO DAILY 11/08/21 01/09/23 Unknown History calcium carbonate (Calcium 500) 500 mg PO DAILY 07/15/22 01/09/23 Unknown History Allergies Allergy/AdvReac Type Severity Reaction Status Date / Time No Known Allergies Allergy Unknown Verified 08/09/24 10:14 Review of Systems 2 Review of Systems: All systems reviewed & are unremarkable except as noted in HPI and below PMFSH Past Medical History Medical History Abnormal mammogram of right breast Acquired curvature of spine Acute respiratory failure with hypoxia COVID-19 Hypercholesterolemia diet treated Hypertension Hypokalemia Hyponatremia Skin plaque Surgical History Surgical History History of tonsillectomy History of vaginal surgery Family History Family History Grandparent Hypertension Mother Hypertension Sibling Carcinoma of colon Social History Social History (Reviewed 01/09/23 @ 08:11 by Ana Laura Estrada [facility]) Smoking status: Never smoker Second hand tobacco smoke exposure: No Alcohol intake: never Substance use: never Substance use type: does not use Lack of Transportation: No Lack of Food: Never True Current Housing: I Have Housing Concerned About Future Housing: No Difficulty Paying Gas/Electric Bills: No Difficulty Paying for Meds: No Currently Unemployed: No Education: High School Diploma/GED Difficulty w/ Childcare or Family Care: No Living arrangements: alone Occupation/Education: occupation 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 Gender identity (if verbalized by the patient): Female Spiritual care concerns: No Agree to blood products: No Exam 2 Narrative: APPEARANCE: Well appearing, no pain, no distress, well-nourished. HEAD: normocephalic, atraumatic. EYES: PERRLA/EOMI, conjunctivae clear. NOSE: Normal no drainage EARS:TMS clear with good light reflex mouth: Healing wound to tongue. THROAT: Pharynx clear, no exudate. NECK: Supple. No adenopathy, no masses. RESPIRATORY: Airway patent, respirations nonlabored. Clear to auscultation bilaterally, no rales, rhonchi, wheezing. CARDIOVASCULAR: Regular rate and rhythm without murmurs rubs or gallops. ABDOMINAL: Soft, nontender, nondistended, normal bowel sounds MUSCULOSKELETAL: Moves all extremities. Strength/ROM intact, No edema, No calf tenderness. NEURO: Alert. Cranial nerves II through XII intact. Good gait. Good coordination SKIN: Warm, dry. Normal Color Course Vital Signs Vital signs: Vital Signs Temperature 97.4 F L 08/09/24 10:07 Pulse Rate 103 H 08/09/24 10:07 Respiratory Rate 15 08/09/24 10:07 Blood Pressure 160/87 H 08/09/24 10:07 Pulse Oximetry 100 08/09/24 10:07 Oxygen Delivery Room Air 08/09/24 10:07 Temperature 97.4 F L 08/09/24 10:07 Pulse Rate 80 08/09/24 12:45 Respiratory Rate 16 08/09/24 12:45 Blood Pressure 129/70 08/09/24 12:45 Pulse Oximetry 100 08/09/24 12:45 Oxygen Delivery Room Air 08/09/24 10:07 Medical Decision Making [facility] Narrative Medical decision making narrative: 74-year-old female present to the emergency department for evaluation for a recheck for a wound on her time. Wound is healing properly with no acute bleeding or evidence of infection. Patient was reassured. All questions concerns were addressed. Differential Diagnosis Differential Diagnosis: blister, time laceration Vital Signs Vital Signs: Vital Signs Temperature 97.4 F L 08/09/24 10:07 Pulse Rate 103 H 08/09/24 10:07 Respiratory Rate 15 08/09/24 10:07 Blood Pressure 160/87 H 08/09/24 10:07 Pulse Oximetry 100 08/09/24 10:07 Oxygen Delivery Room Air 08/09/24 10:07 Temperature 97.4 F L 08/09/24 10:07 Pulse Rate 80 08/09/24 12:45 Respiratory Rate 16 08/09/24 12:45 Blood Pressure 129/70 08/09/24 12:45 Pulse Oximetry 100 08/09/24 12:45 Oxygen Delivery Room Air 08/09/24 10:07 Discharge Plan Discharge Clinical Impression: Traumatic blister of tongue Patient Disposition: Home, Self-Care Condition: Stable Instructions: Antibiotic Form Additional Instructions: have close follow-up with your primary care physician. Patient Language: Greek Prescriptions: No Action calcium carbonate [Calcium 500] 500 mg calcium (1,250 mg) tablet,chewable 500 mg PO DAILY multivitamin Tablet 1 tablet PO DAILY ascorbic acid (vitamin C) [Vitamin C] 500 mg Tablet 250 mg PO DAILY 30 Days Qty: 15 0RF lisinopril 10 mg tablet 10 mg PO DAILY Qty: 90 3RF Rx Instructions: TAKE 1 TABLET BY MOUTH EVERY DAY indapamide 1.25 mg tablet 1.25 mg PO DAILY Qty: 90 1RF Follow-up/Referrals: Amada Cunningham MD [Primary Care Provider] - Stand Alone Forms: Work/School Release IP
[2024-08-09 12:45] VITALS: BP 129/70; PULSE 80; RESP 16; O2SAT 100
== END 2024-08-09 12:50 | disposition home or self-care (01) ==
PROVIDERS: Emergency Provider Emergency Medicine; PCP Family Medicine
DX: S00.522A Blister (nonthermal) of oral cavity, initial encounter (principal); E78.00 Pure hypercholesterolemia, unspecified; I10 Essential (primary) hypertension; Z86.16 Personal history of COVID-19; Z79.899 Other long term (current) drug therapy; X58.XXXA Exposure to other specified factors, initial encounter
CPT/HCPCS: 99282

== ENCOUNTER 2024-08-27 10:12 | Outpatient (CLI) | payer MEDICARE, MEDICAID, SELFPAY ==
[2024-08-27 10:48] LABS: Hematocrit 31.2 % (37.0-47.0); Hemoglobin 9.7 g/dL (12.0-15.0); Mean Corpuscular HGB Conc 31.1 g/dl (32-36); Mean Corpuscular Hemoglobin 27.3 pg (26-34); Mean Corpuscular Volume 87.9 fl (80-100); Mean Platelet Volume 9.4 fl (7.4-10.4); Platelet Count Result 266 k/mm3 (150-375); Red Blood Count 3.55 M/mm3 (4.2-5.4); Red Cell Distribution Width 13.2 % (11.5-14.5); White Blood Count 3.1 K/mm3 (4.5-10.0)
[2024-08-27 11:16] LABS: Alanine Aminotransferase 21 U/L (6-35); Albumin Level 4.7 g/dL (3.5-5.1); Alkaline Phosphatase 62 U/L (38-126); Anion Gap 10 mmol/L (4-12); Aspartate Amino Transferase 26 U/L (14-36); Bilirubin,Total 0.5 mg/dL (0.2-1.3); Blood Urea Nitrogen 20 mg/dL (7-17); Calcium 9.6 mg/dL (8.4-10.2); Carbon Dioxide 28 mmol/L (22-30); Chloride 102 mmol/L (98-107); Estimated Glomerular Filt Rate > 60; Glucose 76 mg/dL (65-110); Potassium 3.9 mmol/L (3.4-5.0); Sodium 140 mmol/L (137-145)
[2024-08-27 11:26] LABS: Free T4 Free Thyroxine 0.81 ng/dL (0.78-2.19)
[2024-08-27 11:39] LABS: Cortisol Random 9.23 ug/dL
[2024-08-28 05:13] LABS: FSH 113.5 mIU/mL; LH 40.3 mIU/mL; Prolactin 6.9 ng/mL
[2024-08-30 16:38] LABS: Thyroid Peroxidase Antibodies <1 IU/mL (<9)
[2024-08-31 20:28] LABS: Adrenocorticotropic Hormone 9 pg/mL (6-50)
== END 2024-08-27 10:13 | disposition home or self-care (01) ==
LOC: ANHLAB 10:14
PROVIDERS: PCP Family Medicine; Visit Provider Internal Medicine
DX: E78.00 Pure hypercholesterolemia, unspecified (principal); I10 Essential (primary) hypertension; E05.90 Thyrotoxicosis, unspecified without thyrotoxic crisis or storm; E06.0 Acute thyroiditis; E03.8 Other specified hypothyroidism; R92.8 Other abnormal and inconclusive findings on diagnostic imaging of breast; M43.9 Deforming dorsopathy, unspecified; L98.8 Other specified disorders of the skin and subcutaneous tissue
CPT/HCPCS: 36415; 80053; 82024; 82533; 83001; 83002; 84146; 84305; 84439; 85027; 86800

== ENCOUNTER 2024-09-06 09:43 | Outpatient (CLI) | payer MEDICARE, MEDICAID, SELFPAY ==
--- NOTE | ~2024-09-06 | US_ITS ---
EXAMINATION: US thyroid DATE: 09/06/2024 10:25 INDICATION: Abnormal thyroid function tests. TECHNIQUE: Multiple ultrasound images of the thyroid were obtained. COMPARISON: None. FINDINGS: The right thyroid lobe measures 5.7 x 1.7 x 1.8 cm. The left thyroid lobe measures 6.0 x 1.7 x 1.7 c m. In the left thyroid lobe, there is a 6 mm mixed cystic and solid, hypoechoic, solid nodule with s mooth margin without echogenic foci (TI-RADS TR3). In the left thyroid lobe, there is a 3 mm nodule. IMPRESSION: 1. Small thyroid nodules, likely not clinically significant. No follow-up is needed. Reviewed, dictated and finalized at location B. IMPRESSION: 1. Small thyroid nodules, likely not clinically significant. No follow-up is ne eded.
--- OUTSIDE RECORDS SUMMARY | 2024-09-06 11:13 | XMS_ITS ---
Author Organization [email or web address] Care Team Providers Care Brim Raiser Name Role Phone Gregorio Szymanski Unavailable Unavailable AmpaduLinwood Unavailable Unavailable Allergies and adverse reactions No Known Allergies Care Team Name Role Address Phone Organization Dates [facility] [address] [place], [place], [facility], [place] (Office): : : [email or web address] 02/09/2021 - 03/01/2021 Gregorio Szymanski Attending Physician [address] [place] [address], [facility], [place] (Office): : : [email or web address] 02/09/2021 - 03/01/2021 Mental Status Section Date Assessment Total Score Description 03/01/2021 BIMS 03 severe cognitiv e impairment CAM 0 No delirium ind icated PHQ-9 09 mild depression 02/16/2021 BIMS 03 severe cognitiv e impairment CAM 0 No delirium ind icated PHQ-9 09 mild depression Problems Problem # Description Date of onset Resolved Date Code CodeSystem Concern Status 1 ACUTE RESPIRATORY FAILURE WITH HYPOXIA 02/10/[address] active 2 COVID-19 02/10/[address] active 3 DEFICIENCY OF OTHER VITAMINS 02/10/[address] active 4 ESSENTIAL (PRIMARY) HYPERTENSION 02/10/[address] active 5 HYPERLIPIDEMIA, UNSPECIFIED 02/10/[address] active 6 NEED FOR ASSISTANCE WITH PERSONAL CARE 02/10/[address] active 7 PNEUMONIA DUE TO CORONAVIRUS DISEASE 201802/10/[address] active 8 SHORTNESS OF BREATH 02/10/[address] active 9 WEAKNESS 02/10/[address] active Reason for Referral No Reasons for Referral Entered Social History Social History Observation Description Start Date End Date Code Code System Current Smoking Status Tobacco smoking consumption unknown 592796287 SNOMED CT Sex Assigned At Female 1950 37488-9 [facility] Vital Signs Code Code System Vitals Name Values and Units Timing Information 67432-4 [facility] Pain Level Value=0.0 03/01/2021 91445-5 [facility] Weight Tmqxa=403.6 Units=Lbs 8302-2 [facility] Height Value=72.0 Units=Inches 02/27/2021 77512-0 [facility] O2 % BldC Oximetry Value=96.0 Units= % 02/27/2021 9279-1 [facility] Respiratory Rate Value=18.0 Units=/m in 02/27/2021 8462-4 [facility] Blood Pressure-Diastolic Value=78 Un its=mmHg 02/27/2021 8480-6 [facility] Blood Pressure-Systolic Jwcff=965 Un its=mmHg 02/27/2021 8310-5 [facility] Body Temperature Value=97.9 Units= F 02/27/2021 8867-4 [facility] Heart rate Value=72.0 Units=/min
--- OUTSIDE RECORDS SUMMARY | 2024-09-06 11:13 | XMS_ITS ---
Author Organization [facility] Care Team Providers Care Fleet Technician Name Role Phone Gregorio Szymanski Unavailable Unavailable [facility]mpaLinwood bond Unavailable Unavailable Allergies and adverse reactions No Known Allergies Care Team Name Role Address Phone Organization Dates [facility] [address] [place], [address], [place] (Office): : : [facility] 02/09/2021 - 03/01/2021 Gregorio Szymanski Attending Physician [address] [place] [address], [place], [place], [facility], [place] (Office): : : [facility] 02/09/2021 - 03/01/2021 Mental Status Section Date [...] 1 ACUTE RESPIRATORY FAILURE WITH HYPOXIA 02/10/[address] active 2 COVID-19 02/10/[address] active 3 DEFICIENCY OF OTHER VITAMINS 02/10/[address] active 4 ESSENTIAL (PRIMARY) HYPERTENSION 02/10/[address] active 5 HYPERLIPIDEMIA, UNSPECIFIED 02/10/[address] active 6 NEED FOR ASSISTANCE WITH PERSONAL CARE 02/10/[address] active 7 PNEUMONIA DUE TO CORONAVIRUS DISEASE 201802/10/[address] active 8 SHORTNESS OF BREATH 02/10/[address] active 9 WEAKNESS 02/10/[address] active Reason for Referral No Reasons for Referral Entered Social History Social History Observation Description Start Date End Date Code Code System Current Smoking Status Tobacco smoking consumption unknown 704353483 SNOMED CT Sex Assigned At Female 1950 56776-7 [facility] Vital Signs Code Code System Vitals Name Values and Units Timing Information 39112-4 [facility] Pain Level Value=0.0 03/01/2021 94066-6 [facility] Weight Fcveq=306.6 Units=Lbs 8302-2 [facility] Height Value=72.0 Units=Inches 02/27/2021 40234-5 [facility] O2 % BldC Oximetry Value=96.0 Units= % 02/27/2021 9279-1 [facility] Respiratory Rate Value=18.0 Units=/m in 02/27/2021 8462-4 [facility] Blood Pressure-Diastolic Value=78 Un its=mmHg 02/27/2021 8480-6 [facility] Blood Pressure-Systolic Gvnwy=385 Un its=mmHg 02/27/2021 8310-5 [facility] Body Temperature Value=97.9 Units= F 02/27/2021 8867-4 [facility] Heart rate Value=72.0 Units=/min
== END 2024-09-06 09:44 | disposition home or self-care (01) ==
PROVIDERS: PCP Family Medicine; Visit Provider Internal Medicine
DX: E04.2 Nontoxic multinodular goiter (principal); I10 Essential (primary) hypertension; E78.00 Pure hypercholesterolemia, unspecified; E05.90 Thyrotoxicosis, unspecified without thyrotoxic crisis or storm; E06.0 Acute thyroiditis; E03.8 Other specified hypothyroidism
CPT/HCPCS: 76536

== ENCOUNTER 2024-10-12 08:07 | Outpatient (CLI) | payer MEDICARE, MEDICAID, SELFPAY ==
--- NOTE | ~2024-10-12 | NM_ITS ---
Thyroid uptake and scan: History: Thyrotoxicosis. Radiopharmaceutical: 0.475 mCi of I-123 was administered orally. Technique: Imaging was informed of the thyroid gland in the anterior, MARITO, and PUENTE planes. Markers ar e placed on the chin and suprasternal notch. Findings: There is homogeneous and symmetric uptake of radiotracer seen in both lobes of the thyroid gland. The thyroid uptake is 44.2% (normal 10-30%), with the right lobe measuring 23.8% uptake and the left 21.8%. Impression: Increased thyroid uptake is compatible with hyperthyroidism. Given diffuse symmetric uptake, Graves' disease is suspected. Correlate with thyroid function tests. Reviewed, dictated and finalized at location . Impression: Increased thyroid uptake is compatible with hyperthyroidism. Given diffuse symm etric uptake, Graves' disease is suspected. Correlate with thyroid function curt ts.
== END 2024-10-12 08:08 | disposition home or self-care (01) ==
PROVIDERS: PCP Family Medicine; Visit Provider Internal Medicine
DX: E78.00 Pure hypercholesterolemia, unspecified (principal); I10 Essential (primary) hypertension; E05.90 Thyrotoxicosis, unspecified without thyrotoxic crisis or storm
CPT/HCPCS: 78014; A9516

== ENCOUNTER 2024-10-14 07:18 | Outpatient (CLI) | payer MEDICARE, MEDICAID, SELFPAY ==
[2024-10-14] MEDS: COSYNTROPIN 0.25 MG/ML VIAL IV PUSH (07:50)
[2024-10-14 08:32] LABS: Cortisol Baseline 8.54 ug/dL
[2024-10-14 08:33] LABS: Thyroid Stimulating Hormone 0.638 uIU/mL (0.465-4.680)
== END 2024-10-14 07:19 | disposition home or self-care (01) ==
PROVIDERS: PCP Family Medicine; Visit Provider Internal Medicine
DX: E03.8 Other specified hypothyroidism (principal); E05.90 Thyrotoxicosis, unspecified without thyrotoxic crisis or storm; I10 Essential (primary) hypertension; E78.00 Pure hypercholesterolemia, unspecified; R92.8 Other abnormal and inconclusive findings on diagnostic imaging of breast; D64.9 Anemia, unspecified; M43.9 Deforming dorsopathy, unspecified; L98.8 Other specified disorders of the skin and subcutaneous tissue; E06.0 Acute thyroiditis; R79.89 Other specified abnormal findings of blood chemistry
CPT/HCPCS: 36415; 82533; 83519; 84443; 96372; J0834

== ENCOUNTER 2025-01-25 09:42 | Emergency (ER) | payer MEDICARE, MEDICAID, SELFPAY ==
[2025-01-25 09:48] VITALS: BP 122/81; PULSE 88; RESP 16; TEMP 36.5; O2SAT 100
--- NOTE | 2025-01-25 10:01 | ED_ITS ---
HPI - Abdominal Pain General Chief Complaint: Abdominal Pain Stated Complaint: wants information about colon. Time Seen by Provider: 01/25/25 09:46 History of Present Illness HPI narrative: 74-year-old female with history of hypertension, hypercholesterolemia presents to the emergency department for constipation that has resolved. Patient states 2 days ago she ate some [place] cheese which caused her to become constipated. She states she normally has a bowel movement every morning but did not have a bowel movement yesterday. She went to the pharmacy and drank a bottle of magnesium citrate yesterday. She states she woke up at 4:00 a.m. this morning and had a very large firm bowel movement. She states she feels much better and does not have any symptoms. She denies any abdominal pain, vomiting, fever, nausea, urinary symptoms, melena or hematochezia. She is wondering if she should stay away from lactose if she has noticed a pattern with constipation when eating cheese. Related Data Allergies Allergy/AdvReac Type Severity Reaction Status Date / Time No Known Allergies Allergy Unknown Verified 01/17/25 08:22 Review of Systems Review of Systems: All systems reviewed & are unremarkable except as noted in HPI and below PMFSH Past Medical History Medical History Acquired curvature of spine Hyponatremia Hypokalemia COVID-19 Acute respiratory failure with hypoxia Abnormal mammogram of right breast Skin plaque Hypercholesterolemia diet treated Hypertension Surgical History Surgical History History of vaginal surgery History of tonsillectomy Family History Family History Grandparent Hypertension Mother Hypertension Sibling Carcinoma of colon Social History Social History Smoking status: Never smoker Second hand tobacco smoke exposure: No Alcohol intake: never Substance use: never Substance use type: does not use Do You Feel Safe in your Home?: Yes Lack of Transportation: No Lack of Food: Never True Current Housing: I Have Housing Concerned About Future Housing: No Difficulty Paying Gas/Electric Bills: No Difficulty Paying for Meds: No Currently Unemployed: No Education: High School Diploma/GED Difficulty w/ Childcare or Family Care: No Living arrangements: alone Occupation/Education: occupation 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 Gender identity (if verbalized by the patient): Female Spiritual care concerns: No Agree to blood products: No Exam Narrative: GENERAL: Well-appearing, well-nourished, and in no acute distress. HEAD: Normocephalic, atraumatic. EYES: EOMI. ENT: Nares clear, no rhinorrhea or epistaxis. Mucous membranes moist. NECK: Supple. CHEST: Clear to auscultation. No respiratory distress. HEART: Regular rate and rhythm. No murmur heard. Normal peripheral pulses. ABDOMEN: Soft, nontender, nondistended, normal active bowel sounds. No rebound, guarding or rigidity. EXTREMITIES: Normal range of motion. No edema. SKIN: Warm, dry, no rash. NEURO: No focal deficits. Alert and oriented x3 Course Vital Signs Vital signs: Vital Signs Temperature 97.7 F 01/25/25 09:48 Pulse Rate 88 01/25/25 09:48 Respiratory Rate 16 01/25/25 09:48 Blood Pressure 122/81 01/25/25 09:48 Pulse Oximetry 100 01/25/25 09:48 Oxygen Delivery Room Air 01/25/25 09:48 Temperature 97.7 F 01/25/25 09:48 Pulse Rate 88 01/25/25 09:48 Respiratory Rate 16 01/25/25 09:48 Blood Pressure 122/81 01/25/25 09:48 Pulse Oximetry 100 01/25/25 09:48 Oxygen Delivery Room Air 01/25/25 09:48 MDM - Abdominal Pain MDM Narrative Medical decision making narrative: 74-year-old female presents emergency department for constipation that has since resolved. Patient ate [place] cheese two days ago and did not have a BM yesterday. She drank magnesia citrate which initiated a reportedly large and firm bowel movement this morning at 4:00 a.m.. She has presents to the ED because she is curious if she should refrain from foods containing lactose is she has noticed a pattern these foods causing constipation. She denies any abdominal pain, nausea or vomiting, fevers, melena or hematochezia, urinary complaints. She is afebrile and nontoxic appearing and resting comfortably in exam bed. Abdomen is soft and nontender. Do not feel need for imaging or workup at this time. Patient advised to stay hydrated, refrain from foods that she has noticed caused her constipation. Will provide stool softeners as well. Advised follow-up with PCP discussed strict ED return precautions. She is agreeable with the plan verbalized understanding. Discharged in stable condition. Discharge Plan Discharge Clinical Impression: Constipation Qualifiers: Constipation type: unspecified constipation type Qualified Code(s): K59.00 - C onstipation, unspecified Patient Disposition: Home Condition: Stable Instructions: Antibiotic Form, Constipation (DC), High Fiber Diet (ED) Additional Instructions: Please make sure to drink plenty of fluids. Stay away from food groups such as cheese that cause you to become constipated. Take the stool softeners daily. Follow-up with your primary care provider. Return to the emergency department if you develop a fever, abdominal pain, you are unable to tolerate food or fluids, or other concerning symptoms. Patient Language: Romanian Prescriptions: New docusate sodium 100 mg capsule 100 mg PO BID Qty: 60 0RF No Action lisinopril 10 mg tablet 10 mg PO DAILY Qty: 90 3RF Rx Instructions: TAKE 1 TABLET BY MOUTH EVERY DAY indapamide 1.25 mg tablet 1.25 mg PO DAILY Qty: 90 1RF Follow-up/Referrals: Amada Cunningham MD [Primary Care Provider] -
== END 2025-01-25 10:17 | disposition home or self-care (01) ==
LOC: ANHED 10:05
PROVIDERS: Emergency Provider Physician Assistant; PCP Family Medicine
DX: K59.00 Constipation, unspecified (principal); I10 Essential (primary) hypertension
CPT/HCPCS: 99283

== ENCOUNTER 2025-02-21 09:57 | Outpatient (CLI) | payer MEDICARE, MEDICAID, SELFPAY ==
[2025-02-21 10:29] LABS: Hematocrit 35.3 % (37.0-47.0); Hemoglobin 10.9 g/dL (12.0-15.0); Immature Granulocyte Percent A 0.0 % (0-0.5); Lymphocytes Absolute Auto 1.34 K/mm3 (0.9-3.2); Mean Corpuscular HGB Conc 30.9 g/dl (32-36); Mean Corpuscular Hemoglobin 27.0 pg (26-34); Mean Corpuscular Volume 87.4 fl (80-100); Nucleated Red Blood Cells Absolute Auto 0.000 K/mm3 (0.0-0.012); Nucleated Red Blood Cells Perc 0.0 % (0.0-0.2); Platelet Count Result 232 k/mm3 (150-375); Red Blood Count 4.04 M/mm3 (4.2-5.4); White Blood Count 3.1 K/mm3 (4.5-10.0)
--- OUTSIDE RECORDS SUMMARY | 2025-02-21 10:46 | XMS_ITS ---
Author Organization [email or web address] Care Team Providers Care Environmental Health Aide Name Role Phone StephonGregorio Unavailable Unavailable AmpaduLinwood Unavailable Unavailable Allergies and adverse reactions No Known Allergies Care Team Name Role Address Phone Organization Dates [facility] [address] [place], [address], [place] (Office): : : [email or web address] 02/09/2021 - 03/01/2021 Gregorio Stephon [address] [place], [address], [place] (Office): : : [email or web address] 02/09/2021 - 03/01/2021 Mental Status Section Date [...] 1 ACUTE RESPIRATORY FAILURE WITH HYPOXIA 02/10/[address] active 2 COVID-19 02/10/[address] active 3 DEFICIENCY OF OTHER VITAMINS 02/10/[address] active 4 ESSENTIAL (PRIMARY) HYPERTENSION 02/10/[address] active 5 HYPERLIPIDEMIA, UNSPECIFIED 02/10/[address] active 6 NEED FOR ASSISTANCE WITH PERSONAL CARE 02/10/[address] active 7 PNEUMONIA DUE TO CORONAVIRUS DISEASE 201802/10/[address] active 8 SHORTNESS OF BREATH 02/10/[address] active 9 WEAKNESS 02/10/[address] active Reason for Referral No Reasons for Referral Entered Social History Social History Observation Description Start Date End Date Code Code System Current Smoking Status Tobacco smoking consumption unknown 894161844 SNOMED CT Sex Assigned At Female 1950 95002-8 [facility] Gender Identity Vital Signs Code Code System Vitals Name Values and Units Timing Information 64545-6 [facility] Pain Level Value=0.0 03/01/2021 43198-8 [facility] Weight Uavha=288.6 Units=Lbs 8302-2 [facility] Height Value=72.0 Units=Inches 02/27/2021 53157-6 [facility] O2 % dC Oximetry Value=96.0 Units= % 02/27/2021 9279-1 [facility] Respiratory Rate Value=18.0 Units=/m in 02/27/2021 8462-4 [facility] Blood Pressure-Diastolic Value=78 Un its=mmHg 02/27/2021 8480-6 [facility] Blood Pressure-Systolic Cagqa=371 Un its=mmHg 02/27/2021 8310-5 [facility] Body Temperature Value=97.9 Units= F 02/27/2021 8867-4 [facility] Heart rate Value=72.0 Units=/min
[2025-02-21 10:53] LABS: Iron 108 ug/dL (37-170)
[2025-02-21 10:55] LABS: Alanine Aminotransferase 14 U/L (6-35); Albumin Level 4.7 g/dL (3.5-5.1); Alkaline Phosphatase 81 U/L (38-126); Anion Gap 9 mmol/L (4-12); Aspartate Amino Transferase 27 U/L (14-36); Bilirubin,Total 0.7 mg/dL (0.2-1.3); Blood Urea Nitrogen 21 mg/dL (7-17); Calcium 9.8 mg/dL (8.4-10.2); Carbon Dioxide 27 mmol/L (22-30); Chloride 102 mmol/L (98-107); Estimated Glomerular Filt Rate > 60; Glucose 68 mg/dL (65-110); Potassium 3.9 mmol/L (3.4-5.0); Sodium 138 mmol/L (137-145); Total Protein 8.1 g/dL (6.3-8.2)
[2025-02-21 11:02] LABS: Percent Iron Saturation 29 % (20-50)
[2025-02-21 11:10] LABS: Free T4 Free Thyroxine 0.82 ng/dL (0.78-2.19)
[2025-02-21 11:27] LABS: Thyroid Stimulating Hormone 0.314 uIU/mL (0.465-4.680); Total Triiodothyronine (T3) 0.80 NG/ML (0.82-1.58)
[2025-02-21 12:53] LABS: Ferritin 30.10 ng/mL (11.1-264)
[2025-02-21 14:31] LABS: Vitamin B12 170.0 pg/mL (239-931)
== END 2025-02-21 09:58 | disposition home or self-care (01) ==
LOC: ANHLAB 09:58
PROVIDERS: PCP Family Medicine; Visit Provider Internal Medicine
DX: D64.9 Anemia, unspecified (principal); I10 Essential (primary) hypertension; E78.00 Pure hypercholesterolemia, unspecified; E05.90 Thyrotoxicosis, unspecified without thyrotoxic crisis or storm; E06.0 Acute thyroiditis; E03.8 Other specified hypothyroidism; R79.89 Other specified abnormal findings of blood chemistry; M85.80 Other specified disorders of bone density and structure, unspecified site
CPT/HCPCS: 36415; 80053; 82607; 82728; 82746; 83540; 83550; 84439; 84443; 84445; 84480; 85025

== ENCOUNTER 2025-06-24 08:58 | Outpatient (CLI) | payer MEDICARE, MEDICAID, SELFPAY ==
--- NOTE | ~2025-06-24 | MM_ITS ---
EXAMINATION: MM screening [facility] BI w tio HISTORY: Screening TECHNIQUE: Craniocaudal and mediolateral oblique 3-D tomosynthesis images were obtained and synthetic 2-D images were generated. CAD analysis was submitted and interpreted. COMPARISON: Comparison to multiple prior studies sequentially, with oldest reviewed study dated 04/22/2019. BREAST PARENCHYMAL COMPOSITION: Dense: The breasts are extremely dense, which lowers the sensitivity of mammography. FINDINGS: There is no evidence of suspicious mass, calcification, or architectural distortion to suggest malignancy in either breast. There has been no suspicious interval change. IMPRESSION: 1. No mammographic evidence of malignancy. 2. Recommend routine screening mammography in one year. BI-RADS Category 1: Negative Reviewed, dictated and finalized at location O. [facility]
--- OUTSIDE RECORDS SUMMARY | 2025-06-24 09:03 | XMS_ITS ---
Author Organization [facility] Care Team Providers Care Unit Trust Manager Name Role Phone StephonGregorio Unavailable Unavailable AmpaduLinwood Unavailable Unavailable Allergies and adverse reactions No Known Allergies Care Team Name Role Address Phone Organization Dates [facility] [address] [place], [address], [place] (Office): : : [facility] 02/09/2021 - 03/01/2021 Gregorio Stephon [address] [place], [address], [place] (Office): : : [facility] 02/09/2021 - 03/01/2021 Mental Status Section Date Assessment Total Score Description 03/01/2021 BIMS 03 severe cognitiv e impairment CAM 0 No delirium ind icated PHQ-9 09 mild depression 02/16/2021 BIMS 03 severe cognitiv e impairment CAM 0 No delirium ind icated PHQ-9 09 mild depression Insurance Providers Coverage Status Coverage Type Relationship to Subscriber Member Identifier Subscriber Identifier Group Identifier Payer Identifier and Other information Code: 1 Code System OID:[id number] [id number]. 3.221.5 Code System Name: Source of Payment Typology ([facility]) Display: Medicare Translation : Code: SIVAN Code System: OID:[id number]. [phone] Code System Name: Insurance Type Code ([id number]) Display Name: Medicare Part A Problems Problem # Description Date of onset Resolved Date Code CodeSystem Concern Status 1 ACUTE RESPIRATORY FAILURE WITH HYPOXIA 02/10/[address] active 2 COVID-19 02/10/[address] active 3 DEFICIENCY OF OTHER VITAMINS 02/10/[address] active 4 ESSENTIAL (PRIMARY) HYPERTENSION 02/10/[address] active 5 HYPERLIPIDEMIA, UNSPECIFIED 02/10/[address] active 6 NEED FOR ASSISTANCE WITH PERSONAL CARE 02/10/[address] active 7 PNEUMONIA DUE TO CORONAVIRUS DISEASE 201802/10/[address] active 8 SHORTNESS OF BREATH 02/10/[address] active 9 WEAKNESS 02/10/[address] active Reason for Referral No Reasons for Referral Entered Social History Social History Observation Description Start Date End Date Code Code System Current Smoking Status Tobacco smoking consumption unknown 302094198 SNOMED CT Sex Assigned At Female 1950 10372-5 [facility] Gender Identity Sexual Orientation Vital Signs Code Code System Vitals Name Values and Units Timing Information 06528-8 [facility] Pain Level Value=0.0 03/01/2021 12932-5 [facility] Weight Vajnr=222.6 Units=Lbs 8302-2 [facility] Height Value=72.0 Units=Inches 02/27/2021 51381-8 [facility] O2 % BldC Oximetry Value=96.0 Units= % 02/27/2021 9279-1 [facility] Respiratory Rate Value=18.0 Units=/m in 02/27/2021 8462-4 [facility] Blood Pressure-Diastolic Value=78 Un its=mmHg 02/27/2021 8480-6 [facility] Blood Pressure-Systolic Klpex=993 Un its=mmHg 02/27/2021 8310-5 [facility] Body Temperature Value=97.9 Units= F 02/27/2021 8867-4 [facility] Heart rate Value=72.0 Units=/min
== END 2025-06-24 08:59 | disposition home or self-care (01) ==
LOC: ANHFOHIMG 09:00
PROVIDERS: PCP Family Medicine; Visit Provider Family Medicine
DX: Z12.31 Encounter for screening mammogram for malignant neoplasm of breast (principal)
CPT/HCPCS: 36415; 77063; 77067; 84439; 84443; 84480

== ENCOUNTER 2025-06-24 09:56 | Outpatient (CLI) | payer MEDICARE, MEDICAID, SELFPAY ==
--- OUTSIDE RECORDS SUMMARY | 2025-06-24 10:01 | XMS_ITS ---
Author Organization [facility] Care Team Providers Care Inter Com Servicer Name Role Phone StephonGregorio Unavailable Unavailable AmpaduLinwood Unavailable Unavailable Allergies and adverse reactions No Known Allergies Care Team Name Role Address Phone Organization Dates [facility] Amp[facility]u [facility] [address] [place], [address], [place] (Office): : : [facility] 02/09/2021 - 03/01/2021 Gregorio Stephon [address] [place], [address], [place] (Office): : : [facility] 02/09/2021 - 03/01/2021 Mental Status Section [...] Other information Code: 1 Code System OID:[email or web address] [id number]. 3.221.5 Code System Name: Source of Payment Typology ([facility]) Display: Medicare Translation : Code: SIVAN Code System: OID:[email or web address] [id number]. 6.255.1336 Code System Name: Insurance Type Code ([id number]) Display Name: Medicare Part A Problems Problem # Description Date of onset Resolved Date Code CodeSystem Concern Status 1 ACUTE RESPIRATORY FAILURE WITH HYPOXIA 02/10/[address] active 2 COVID-19 02/10/[address] active 3 DEFICIENCY OF OTHER VITAMINS 02/10/[address] active 4 ESSENTIAL (PRIMARY) HYPERTENSION 02/10/[address] active 5 HYPERLIPIDEMIA, UNSPECIFIED 02/10/[address] active 6 NEED FOR ASSISTANCE WITH PERSONAL CARE 02/10/[address] active 7 PNEUMONIA DUE TO CORONAVIRUS DISEASE 201802/10/[address] active 8 SHORTNESS OF BREATH 02/10/[address] active 9 WEAKNESS 02/10/[address] active Reason for Referral No Reasons for Referral Entered Social History Social History Observation Description Start Date End Date Code Code System Current Smoking Status Tobacco smoking consumption unknown [id number] SNOMED CT Sex Assigned At Female 1950 24265-9 LOINC Gender Identity Sexual Orientation Vital Signs Code Code System Vitals Name Values and Units Timing Information 56965-7 LOINC Pain Level Value=0.0 03/01/2021 86882-0 LOINC Weight Wadys=047.6 Units=Lbs 8302-2 LOINC Height Value=72.0 Units=Inches 02/27/2021 04970-1 LOINC O2 % BldC Oximetry Value=96.0 Units= % 02/27/2021 9279-1 LOINC Respiratory Rate Value=18.0 Units=/m in 02/27/2021 8462-4 LOINC Blood Pressure-Diastolic Value=78 Un its=mmHg 02/27/2021 8480-6 LOINC Blood Pressure-Systolic Rbysc=521 Un its=mmHg 02/27/2021 8310-5 [facility] Body Temperature Value=97.9 Units= F 02/27/2021 8867-4 [facility] Heart rate Value=72.0 Units=/min
[2025-06-24 11:06] LABS: Thyroid Stimulating Hormone 0.328 uIU/mL (0.465-4.680); Total Triiodothyronine (T3) 0.95 NG/ML (0.82-1.58)
[2025-06-24 12:06] LABS: Free T4 Free Thyroxine 0.88 ng/dL (0.78-2.19)
== END 2025-06-24 09:57 | disposition home or self-care (01) ==
PROVIDERS: PCP Family Medicine; Visit Provider Internal Medicine
DX: D64.9 Anemia, unspecified (principal); I10 Essential (primary) hypertension; E78.00 Pure hypercholesterolemia, unspecified; E05.90 Thyrotoxicosis, unspecified without thyrotoxic crisis or storm; E06.0 Acute thyroiditis; R79.89 Other specified abnormal findings of blood chemistry; M85.80 Other specified disorders of bone density and structure, unspecified site
CPT/HCPCS: 36415; 84439; 84443; 84480